=== PATIENT | female | born 1985 | race Caucasian/White ===

== ENCOUNTER 2022-03-03 22:02 | Inpatient (IN) | payer MEDICAID, SELFPAY ==
[2022-03-03 22:04] VITALS: BP 121/85; PULSE 106; RESP 16; TEMP 36.3; O2SAT 99; BMI 34.4
[2022-03-03 22:08] VITALS: BP 121/85; PULSE 106; RESP 16; TEMP 36.3; O2SAT 99
--- NOTE | 2022-03-03 22:35 | CT_ITS ---
We are attempting to reach an attending provider to discuss findings. An addendum with communication details will be sent when the communication is complete. INDICATION: RLQ pain EXAMINATION: CT Abdomen And Pelvis W/ Contrast Injection TECHNIQUE: Helically acquired images were obtained of the abdomen and pelvis following IV contrast. 2-D reconstructions reviewed. A radiation dose optimization technique was used for this scan. IV Contrast dosage and agent: 100 mL [id number] Oral contrast: None. COMPARISON: None. FINDINGS: LOWER CHEST: No acute findings within the imaged lung bases. Heart size within normal limits. LIVER: Homogeneous. No concerning lesion. GALLBLADDER AND BILIARY TREE: No calcified gallstones identified. No pericholecystic edema demonstrated. No significant biliary ductal dilation. PANCREAS: No discrete mass or peripancreatic edema. SPLEEN: Normal size without focal cystic or solid mass. ADRENAL GLANDS: Small, benign fatty 11 mm left adrenal nodule (adenoma versus myelolipoma). KIDNEYS AND URETERS: Normal renal size and position. No hydronephrosis. No concerning lesion. PERITONEUM: Small amount of free air and free fluid within right lower abdomen adjacent to inflamed air fluid collection extending from adjacent thickened loop of distal small bowel, most compatible with perforated Meckel''s diverticulum, ileal diverticulitis or other etiology bowel perforation. Air fluid collection measures approximately 2 cm diameter. There is no distant free air. BOWEL: Focal inflammation and perforation involving distal small bowel segment within right lower abdomen. Appendiceal tip intimately abuts right lower quadrant air-fluid collection but appendix does not appear dilated. No bowel obstruction. LYMPH NODES: No enlarged mesenteric or retroperitoneal lymph nodes. VESSELS: No acute findings. No abdominal aortic aneurysm. URINARY BLADDER: Unremarkable as visualized. REPRODUCTIVE ORGANS: No pelvic masses. ABDOMINAL WALL: No acute findings or significant hernia defect. BONES: Intact with no suspicious osseous lesion. CT/Abdomen/Pelvis W IV Cont ONLY IMPRESSION: Perforated distal small bowel within right lower quadrant with adjacent small abscess collection. Differential includes perforated Meckel''s diverticulitis, focal ileal diverticulitis or other etiology of bowel perforation. Adjacent distal appendix does not appear to represent source of perforation. Recommend surgical consultation. Electronically Signed: Orlando Maher MD at 0:33 EST ,
--- NOTE | 2022-03-03 22:36 | ED.VIS.GI ---
HPI HPI - GI History of Present Illness Chief Complaint: Abd Pain Informant: patient Narrative Narrative: 36-year-old female presenting with right lower quadrant pain. This started on Friday. She has had vomiting x1. She started having diarrhea today. She has had subjective fevers. On Friday morning she states she went to the bathroom stood up started to feel lightheaded and then had a syncopal episode. She did not hit her head. She had another episode of lightheadedness today that resolved with sitting down. She denies chest pain or shortness of breath. Prior similar symptoms: No Recent Illness/Hospitalization: No PFSH PFSH Home Medications benzonatate 100 mg capsule 200 mg PO TID PRN PRN Cough ##20 10/13/13 [Rx Last Taken Unknown] ibuprofen 600 mg tablet 600 mg PO Q8H PRN Pain ##30 10/13/13 [Rx Last Taken Unknown] prednisone 10 mg tablet 10 mg PO UD ##33 10/18/16 [Rx Last Taken Unknown] Allergy/AdvReac Type Severity Reaction Status Date / Time No Known Allergies Allergy Verified 10/13/13 20:57 Social History Smoking Status: Former smoker ROS ROS ED Constitutional Constitutional ED: Denies fever(s) Eyes Eyes: Denies change in vision ENT ENT ED: Denies rhinorrhea or sore throat Cardiovascular Cardiovascular: Denies chest pain or palpitations Respiratory/Chest Respiratory/Chest: Denies cough or dyspnea Gastrointestinal Gastrointestinal: Reports abdominal pain, diarrhea, nausea and vomiting Genitourinary Genitourinary ED: Denies dysuria Musculoskeletal Musculoskeletal: Denies myalgias Integumentary Denies rash Neurologic Neurologic: Reports headache(s) Psychiatric Psychiatric: Denies suicidal thoughts EXAM Physical Exam Const Vital Signs: 03/03/22 22:04 03/03/22 22:08 03/04/22 00:20 Temperature 97.3 F L 97.3 F L Temperature Source Temporal Temporal Pulse Rate 106 H 106 H Respiratory Rate 16 16 Blood Pressure 121/85 H 121/85 H Blood Pressure Mean 97 97 Pulse Ox 99 99 99 Oxygen Delivery Method Room Air Room Air Room Air Positive well nourished and well developed General Appearance ED: well developed HEENT Reports normocephalic and head/scalp atraumatic Eyes PERRL and EOMs intact bilaterally Neck supple Neck Narrative: No meningismus General: Negative for tenderness Chest Wall inspection of chest normal Resp normal respiratory effort and clear to auscultation bilaterally Cardio regular rate and regular rhythm GI non-distended GI Narrative: Right lower quadrant tenderness with no guarding or rebound Palpation: soft; Negative for guarding or rebound tenderness present no CVA tenderness Extremity normal to inspection Neuro oriented x3 Sensorium / Orientation: alert Psych mental status grossly normal MDM MDM MDM Narrative Medical decision making narrative: Patient was given IV fluids, morphine, Zofran. CBC, chemistries are unremarkable. Lipase is normal. negative. Urinalysis shows 0 white blood cells, 25-[address] abdomen pelvis was obtained and shows perforated distal small bowel within right lower quadrant with adjacent small abscess collection.? Differential includes perforated Meckel''s diverticulitis, focal ileal diverticulitis or other etiology of bowel perforation.? Adjacent distal appendix does not appear to represent source of perforation.? Recommend surgical consultation. Patient was given Zosyn IV. On repeat evaluation she continues to have right lower quadrant tenderness. Discussed with Dr. Collier. He will evaluate the patient in the ED. Lab Data Attestation: I reviewed the patient's lab results. Labs: Laboratory Results - last 24 hr 03/03/22 03/03/22 03/03/22 22:15 22:15 22:15 WBC 7.5 RBC 4.78 Hgb 13.8 Hct 41.5 MCV 86.8 MCH 28.9 MCHC 33.3 RDW Std Deviation 38.6 RDW Coeff of Dylan 12.0 Plt Count 287 MPV 10.0 Immature Gran % (Auto) 0.300 Neut % (Auto) 64.6 Lymph % (Auto) 25.8 [place] % (Auto) 8.6 Eos % (Auto) 0.4 Baso % (Auto) 0.3 Absolute Neuts (auto) 4.9 Absolute Lymphs (auto) 1.94 Nucleated RBC % 0 Sodium 138 Potassium 3.4 L Chloride 104 Carbon Dioxide 26.0 Anion Gap 8 BUN 13 Creatinine 0.88 Estim Creat Clear Calc 62.87 Est GFR (MDRD) Af Amer 93 Est GFR (MDRD) Non-Af 77 BUN/Creatinine Ratio 14.8 Glucose 116 H Calcium 8.9 Total Bilirubin 0.60 AST 12 L ALT 21 Alkaline Phosphatase 99 Total Protein 8.1 Albumin 3.6 Globulin 4.5 H Albumin/Globulin Ratio 0.8 L Lipase 78 Serum , Qual NEGATIVE Urine Color Urine Clarity Urine pH Ur Specific [place] Urine Protein Urine Glucose (UA) Urine Ketones Urine Occult Blood Urine Nitrite Urine Bilirubin Urine Urobilinogen Ur Leukocyte Esterase Urine RBC Urine WBC Ur Squamous Epith Cells Urine Bacteria Urine Mucus 03/03/22 22:50 WBC RBC Hgb Hct MCV MCH MCHC RDW Std Deviation RDW Coeff of Dylan Plt Count MPV Immature Gran % (Auto) Neut % (Auto) Lymph % (Auto) [place] % (Auto) Eos % (Auto) Baso % (Auto) Absolute Neuts (auto) Absolute Lymphs (auto) Nucleated RBC % Sodium Potassium Chloride Carbon Dioxide Anion Gap BUN Creatinine Estim Creat Clear Calc Est GFR (MDRD) Af Amer Est GFR (MDRD) Non-Af BUN/Creatinine Ratio Glucose Calcium Total Bilirubin AST ALT Alkaline Phosphatase Total Protein Albumin Globulin Albumin/Globulin Ratio Lipase Serum , Qual Urine Color Yellow Urine Clarity Sl. Cloudy Urine pH 6.0 Ur Specific [place] 1.020 Urine Protein 30 H Urine Glucose (UA) Normal Urine Ketones Negative Urine Occult Blood 25 H Urine Nitrite Negative Urine Bilirubin 1 H Urine Urobilinogen 8 H Ur Leukocyte Esterase Negative Urine RBC 0-5 SEEN Urine WBC 0 SEEN Ur Squamous Epith Cells 25-50 SEEN Urine Bacteria 0 SEEN Urine Mucus 0 SEEN Radiography Diagnostic Testing: Clinical Impression(s) from Imaging Studies Abdomen/Pelvis CT 03/03/22 22:35 IMPRESSION: Perforated distal small bowel within right lower quadrant with adjacent small abscess collection. Differential includes perforated Meckel''s diverticulitis, focal ileal diverticulitis or other etiology of bowel perforation. Adjacent distal appendix does not appear to represent source of perforation. Recommend surgical consultation. Electronically Signed: Orlando Maher MD at 0:33 EST , ADDENDUM: 03/04/22 0046 IMPRESSION: Perforated distal small bowel within right lower quadrant with adjacent small abscess collection. Differential includes perforated Meckel''s diverticulitis, focal ileal diverticulitis or other etiology of bowel perforation. Adjacent distal appendix does not appear to represent source of perforation. Recommend surgical consultation. N.B. : The above Results were Read Back by Orlando Maher MD to Kristie Hill MD, and understanding confirmed on 03/04/2022 00:39:23 (ET). Electronically Signed: Orlando Maher MD at 0:33 EST , Discharge Plan Triage Chief Complaint: Abd Pain ED Provider: Kristie Hill Dx/Rx/DC Orders Clinical Impression: Small bowel perforation Prescriptions: No Action benzonatate 100 MG capsule 200 mg PO TID PRN PRN (Reason: Cough) Qty: 20 0RF ibuprofen 600 MG tablet 600 mg PO Q8H PRN (Reason: Pain) Qty: 30 0RF prednisone 10 MG tablet 10 mg PO UD Qty: 33 0RF Rx Instructions: Take 4 tablets daily for 3 days, then 3 daily for 3 days, then 2 daily for 3 days, then 1 a day for 3 days then 1 QOD for 3 doses. Primary Care Provider: Latoya Troy Referrals: [facility] Doctor,Out of [Non-Staff] - Disposition Disposition: Acute Care Hospital [facility]
[2022-03-03 22:52] LABS: Absolute Lymphocyte Count 1.94 X10^3/uL (0.83-4.51); Absolute Neutrophil Count 4.9 X10^3/uL (2.0-7.7); Basophil# 0.02 X10^3/uL; Basophil% 0.3 % (0-1); Eosinophil# 0.03 X10^3/uL; Eosinophils% 0.4 % (0-5); Hematocrit 41.5 % (37-47); Hemoglobin 13.8 g/dL (12.0-15.0); Lymphocyte # 1.94 X10^3/ul (0.83-4.51); Lymphocyte % 25.8 % (19-41); Mean Corp Hgb Conc 33.3 g/dL (32-36); Mean Corpuscular Hgb 28.9 pg (27.0-32.0); Mean Corpuscular Volume 86.8 fL (81-99); Monocyte# 0.65 X10^3/uL; Monocyte% 8.6 % (0-10); NRBC Flagged by Analyzer 0 % (0-5); Neutrophil # 4.86 X10^3/uL (2.7-7.7); Neutrophil % 64.6 % (47-70); Platelet Count 287 K/mm3 (150-450); RBC Distribution Width SD 38.6 fl (35.1-43.9); Red Blood Count 4.78 M/mm3 (4.2-5.4); White Blood Count 7.5 K/mm3 (4.4-11.0)
[2022-03-03] MEDS: Morphine 4 MG/ML Syringe IV (22:55)
[2022-03-03] MEDS: 0.9% Normal Saline 1,000 ML 1000 ML IV (22:55)
[2022-03-03] MEDS: Ondansetron 4 MG/2 ML Vial IV (22:55)
[2022-03-03 23:04] LABS: Bacteria 0 SEEN /hpf (None Seen); Mucous, Urine 0 SEEN /hpf (<or=2+); White Blood Cells 0 SEEN /hpf (0-5)
[2022-03-03 23:05] LABS: Color, Urine Yellow (Yellow); Glucose, Dipstick Normal (Normal); Ketone-Dipstick Negative (Negative); Leukocyte Esterase-Dipstick Negative /ul (Negative); Nitrite-Dipstick Negative (Negative); Occult Blood-Urine 25 /ul (Negative); Protein-Dipstick 30 mg/dl (Negative); Urine Clarity Sl. Cloudy (Clear); Urine Urobilinogen 8 mg/dl (Normal)
[2022-03-03 23:05] LABS: Internal QC Validated? YES +Cl - CLEAR BKGD; Pregnancy, Serum, hCG Quali. NEGATIVE Negative
[2022-03-03 23:11] LABS: Urine Bilirubin Dipstick 1 mg/dL (Negative)
[2022-03-03 23:12] LABS: ALB/GLOB Ratio 0.8 RATIO (0.9-2.4); AST(SGOT) 12 U/L (15-37); Alanine Aminotransfer ALT/SGPT 21 U/L (13-56); Albumin, Serum 3.6 g/dL (3.2-5.0); Alkaline Phosphatase 99 U/L (45-117); Anion Gap 8 (5-15); BUN 13 mg/dL (7-18); BUN/Creat Ratio 14.8 RATIO (10-20); Calcium,Total 8.9 mg/dL (8.5-10.1); Chloride 104 mmol/L (98-107); Creatinine, Serum 0.88 mg/dL (0.55-1.02); EST Glomerular Filtration Rate 77 mL/min (>60); Est Glom Filt Rate - Afr Amer 93 mL/min (>60); Estimated Creatinine Clearance 62.87 ml/min; Globulin 4.5 g/dL (2.2-4.2); Glucose 116 mg/dL (74-106); Lipase 78 U/L (73-393); Potassium 3.4 mmol/L (3.5-5.1); Protein, Total 8.1 g/dL (6.4-8.2); Sodium Level 138 mmol/L (136-145)
[2022-03-03 23:13] LABS: Red Blood Cells-Urine 0-5 SEEN /hpf (0-5); Squamous Epithelial Cells - UA 25-50 SEEN /hpf (5-10)
[2022-03-04] VITALS (30 sets, daily range): BP systolic 88–114; BP diastolic 54–73; PULSE 68–109; RESP 12–32; TEMP 36.1–37.1; O2SAT 89–99; BMI 34.4; BMI 35.5
--- NOTE | 2022-03-04 | APP_PTH ---
PATIENT: SONAL TEE LOC: MS3 U#:[id number] AGE/SX: 36/F ROOM: MS309 RE03/04/[address]: Dr. Ludin Randhawa MD : 1985 BED: 1 DIS: 03/06/2022 SPEC #: [id number] RECD: 03/04/22 10:51 STATUS: MELONY GLYNN #: [id number] LYNDSEY: 03/04/22 00:[address]: Bernardo Collier DEPT: SURGICAL PATHOLOGY RECD BY: Jeremy Snowden ENTERED: 03/04/22 10:52 SP TYPE: APPENDIX OTHR DR: Dr. Latoya Troy, DO Tissues: A - Appendix, NOS B - Small intestine biopsy Procedures: Surgery Specimen Level III Surgery Specimen Level V HEADER OPERATION: Laparoscopic appendectomy, lysis of adhesions PRE-OP DIAGNOSIS: Small bowel perforation TISSUE SUBMITTED: A ? Appendix, B ? Small bowel MICROSCOPIC DIAGNOSIS A. Appendix, appendectomy: Fibrous obliteration of lumen. Periappendiceal soft tissue with abscess formation. B. Small bowel, segmental resection: Diverticular disease of colon with associated microabscess formation containing fecal debris and acute serositis. Margins of excision with no pathologic change. AM:huyen 03/06/2022 MICROSCOPIC DESCRIPTION Slides are reviewed. GROSS DESCRIPTION A - Received in fixative is one container labeled with the patient's name and designated appendix. The specimen consists of a C-shaped appendix measuring 5 cm in length and up to 0.5 cm in diameter. The attached periappendiceal adipose tissue measures up to 1.5 cm in width. It is wrapped around the appendix. No obvious perforation is identified. The lumen is pinpoint. No fecal is identified. Adjacent adipose tissue shows hemorrhagic surfaces. Technical Writer And Editor sections are submitted in three cassettes as follows: 1 - tip of the appendix and most proximal portion, 2 & 3 - rest of the appendix (cassette 3 also contains the attached periappendiceal adipose tissue). The appendix is submitted in entirety. / SJ:huyen 03/04/2022 B - Received in fixative is one container labeled with the patient's name and designated small bowel. The specimen consists of a segment of small bowel measuring 12 cm in length. Attached mesenteric tissue measures up to 3 cm in width. Both resection margins are stapled. No mucosal lesion is identified. A diverticulum is noted 1 cm away from one resection margin. A second diverticulum is also noted. No obvious gross perforation is noted. A focal area of serosal surface shows noriega, purulent exudate. A diverticulum is also noted at the site, most likely represents site of perforation. More dictation will follow after fixation. / Cory 03/04/2022 Also present in the container is a donut-shaped piece of tissue measuring 3.5 x 1.5 x 0.5 cm. Multiple panfilo are noted. Sections reveal multiple diverticula. One of the diverticula appears to be ruptured. The serosal surface over the diverticula shows noriega, purulent exudate. Sections of mesenteric tissue do not reveal any obviously enlarged lymph node. Technical Writer And Editor sections are submitted in six cassettes as follows: 1 - donut, 2 - resection margin, 3-5 - ruptured diverticulum, 6 - additional diverticula and mesenteric tissue. Cristina Ray 03/05/2022 TC:2 CPT: 15145, 80503
--- NOTE | 2022-03-04 | APP_PTH ---
PATIENT: SONAL TEE LOC: MS3 U#:[id number] AGE/SX: 36/F ROOM: MS309 RE03/04/[address]: Dr. Ludin Randhawa MD : 1985 BED: 1 DIS: 03/06/2022 SPEC #: [id number] RECD: 03/04/22 10:51 STATUS: MELONY GLYNN #: [id number] LYNDSEY: 03/04/22 00:[address]: Bernardo Collier DEPT: SURGICAL PATHOLOGY RECD BY: Jeremy Snowden ENTERED: 03/04/22 10:52 SP TYPE: APPENDIX OTHR DR: Dr. Latoya Troy, DO Tissues: A - Appendix, NOS B - Small intestine biopsy Procedures: Surgery Specimen Level III Surgery Specimen Level V HEADER OPERATION: Laparoscopic appendectomy, lysis of adhesions PRE-OP DIAGNOSIS: Small bowel perforation TISSUE SUBMITTED: A - Appendix, B - Small bowel MICROSCOPIC DIAGNOSIS A. Appendix, appendectomy: Fibrous obliteration of lumen. Periappendiceal soft tissue with abscess formation. B. Small bowel, segmental resection: Diverticular disease of small bowel with associated microabscess formation containing fecal debris and acute serositis. Margins of excision with no pathologic change. AM:huyen 03/06/2022 MICROSCOPIC DESCRIPTION Slides are reviewed. GROSS DESCRIPTION A - Received in fixative is one container labeled with the patient's name and designated appendix. The specimen consists of a C-shaped appendix measuring 5 cm in length and up to 0.5 cm in diameter. The attached periappendiceal adipose tissue measures up to 1.5 cm in width. It is wrapped around the appendix. No obvious perforation is identified. The lumen is pinpoint. No fecal is identified. Adjacent adipose tissue shows hemorrhagic surfaces. Branch Billing Payroll Clerk sections are submitted in three cassettes as follows: 1 - tip of the appendix and most proximal portion, 2 & 3 - rest of the appendix (cassette 3 also contains the attached periappendiceal adipose tissue). The appendix is submitted in entirety. / SJ:huyen 03/04/2022 B - Received in fixative is one container labeled with the patient's name and designated small bowel. The specimen consists of a segment of small bowel measuring 12 cm in length. Attached mesenteric tissue measures up to 3 cm in width. Both resection margins are stapled. No mucosal lesion is identified. A diverticulum is noted 1 cm away from one resection margin. A second diverticulum is also noted. No obvious gross perforation is noted. A focal area of serosal surface shows noriega, purulent exudate. A diverticulum is also noted at the site, most likely represents site of perforation. More dictation will follow after fixation. / Cory 03/04/2022 Also present in the container is a donut-shaped piece of tissue measuring 3.5 x 1.5 x 0.5 cm. Multiple panfilo are noted. Sections reveal multiple diverticula. One of the diverticula appears to be ruptured. The serosal surface over the diverticula shows noriega, purulent exudate. Sections of mesenteric tissue do not reveal any obviously enlarged lymph node. Branch Billing Payroll Clerk sections are submitted in six cassettes as follows: 1 - donut, 2 - resection margin, 3-5 - ruptured diverticulum, 6 - additional diverticula and mesenteric tissue. Cristina Ray 03/05/2022 TC:2 CPT: 55318, 95603
--- NOTE | 2022-03-04 01:35 | CON.PCM.SX_ITS ---
Assessment & Plan Assessment/Plan (1) Small bowel perforation: PLAN: My plan is perform a laparoscopic exploration. Possible resection of small bowel probable laparoscopic appendectomy. I have counseled the patient as to the risks of the procedure, including but not limited to: infection, bleeding, injury to any blood vessels/nerves, injury to any bowel/bladder, injury to any intraabdominal organs such as the liver/spleen, perforation of the GI tract, intraabdominal abscess/bleeding, incisional hernias, , recurrence of hernia(s), complications of anesthesia, etc. The patient verbalizes understanding. HPI Consult Data Date of Consult: 03/04/22 HPI Narrative HPI Narrative: SONAL MEJÍA, is a 36 F who presents ?with right lower quadrant pain.? This started on Friday.? She has had vomiting x1.? She started having diarrhea today.? She has had subjective fevers.? On Friday morning she states she went to the bathroom stood up started to feel lightheaded and then had a syncopal episode.? She did not hit her head.? She had another episode of lightheadedness today that resolved with sitting down.? She denies chest pain or shortness of breath. Prior similar symptoms: No Recent Illness/Hospitalization: No While in the emergency department the Patient was given IV fluids, morphine, Zofran.? CBC, chemistries are unremarkable.? Lipase is normal.? negative.? Urinalysis shows 0 white blood cells, 25-[address] abdomen pelvis was obtained and shows perforated distal small bowel within right lower quadrant with adjacent small abscess collection.? Differential includes perforated Meckel''s diverticulitis, focal ileal diverticulitis or other etiolo gy of bowel perforation.? Adjacent distal appendix does not appear to represent source of perforation.? ? Patient was given Zosyn IV.? On repeat evaluation she continues to have right lower quadrant tenderness.? PFSH Home Medications benzonatate 100 mg capsule 200 mg PO TID PRN PRN Cough ##20 10/13/13 [Rx Last Taken Unknown] ibuprofen 600 mg tablet 600 mg PO Q8H PRN Pain ##30 10/13/13 [Rx Last Taken Unknown] prednisone 10 mg tablet 10 mg PO UD ##33 10/18/16 [Rx Last Taken Unknown] Allergy/AdvReac Type Severity Reaction Status Date / Time No Known Allergies Allergy Verified 10/13/13 20:57 Social History Smoking Status: Former smoker ROS Constitutional Constitutional: Denies chills or fever(s) Eyes Eyes: Denies change in vision Cardiovascular Cardiovascular: Denies chest pain Respiratory/Chest Respiratory/Chest: Denies cough or dyspnea Gastrointestinal Gastrointestinal: Reports abdominal pain, constipation, diarrhea and vomiting Genitourinary Genitourinary: Denies change in urinary stream Physical Exam Const alert, oriented x3 and no apparent distress HEENT normocephalic and head/scalp atraumatic Eyes PERRL and EOMs intact bilaterally Resp clear to auscultation bilaterally Cardio Rate: regular rate Rhythm: regular rhythm GI soft to palpation Palpation: tender RLQ Extremity normal to inspection Lab / Micro Data Result Diagrams: 03/03/22 22:15 03/03/22 22:15 Labs: Laboratory Results - last 24 hr 03/03/22 22:15: WBC 7.5, RBC 4.78, Hgb 13.8, Hct 41.5, MCV 86.8, MCH 28.9, MCHC 33.3, RDW Std Deviation 38.6, RDW Coeff of Dylan 12.0, Plt Count 287, MPV 10.0, Immature Gran % (Auto) 0.300, Neut % (Auto) 64.6, Lymph % (Auto) 25.8, [place] % (Auto) 8.6, Eos % (Auto) 0.4, Baso % (Auto) 0.3, Absolute Neuts (auto) 4.9, Absolute Lymphs (auto) 1.94, Nucleated RBC % 0 03/03/22 22:15: Sodium 138, Potassium 3.4 L, Chloride 104, Carbon Dioxide 26.0, Anion Gap 8, BUN 13, Creatinine 0.88, Estim Creat Clear Calc 62.87, Est GFR (MDRD) Af Amer 93, Est GFR (MDRD) Non-Af 77, BUN/Creatinine Ratio 14.8, Glucose 116 H, Calcium 8.9, Total Bilirubin 0.60, AST 12 L, ALT 21, Alkaline Phosphatase 99, Total Protein 8.1, Albumin 3.6, Globulin 4.5 H, Albumin/Globulin Ratio 0.8 L , Lipase 78 03/03/22 22:15: Serum , Qual NEGATIVE 03/03/22 22:50: Urine Color Yellow, Urine Clarity Sl. Cloudy, Urine pH 6.0, Ur Specific [place] 1.020, Urine Protein 30 H, Urine Glucose (UA) Normal, Urine Ketones Negative, Urine Occult Blood 25 H, Urine Nitrite Negative, Urine Bilirubin 1 H, Urine Urobilinogen 8 H, Ur Leukocyte Esterase Negative, Urine RBC 0-5 SEEN, Urine WBC 0 SEEN, Ur Squamous Epith Cells 25-50 SEEN, Urine Bacteria 0 SEEN, Urine Mucus 0 SEEN Micro: Microbiology 03/03/22 22:48 Nasal Secretion SARS-CoV-2 & FLU Antigen (Rapid) - Final Radiology Impression Abdomen/Pelvis CT 03/03/22 22:35 IMPRESSION: Perforated distal small bowel within right lower quadrant with adjacent small abscess collection. Differential includes perforated Meckel''s diverticulitis, focal ileal diverticulitis or other etiology of bowel perforation. Adjacent distal appendix does not appear to represent source of perforation. Recommend surgical consultation. Electronically Signed: Orlando Maher MD at 0:33 EST , ADDENDUM: 03/04/22 0046 IMPRESSION: Perforated distal small bowel within right lower quadrant with adjacent small abscess collection. Differential includes perforated Meckel''s diverticulitis, focal ileal diverticulitis or other etiology of bowel perforation. Adjacent distal appendix does not appear to represent source of perforation. Recommend surgical consultation. N.B. : The above Results were Read Back by Orlando Maher MD to Kristie Hill MD, and understanding confirmed on 03/04/2022 00:39:23 (ET). Electronically Signed: Orlando Maher MD at 0:33 EST ,
[2022-03-04] MEDS: Lactated Ringers 1,000 ML 15 ML IV ×2 (02:30→06:16)
[2022-03-04] MEDS: Bupivacaine Mpf 0.5% 30 ML VIAL (04:49)
--- NOTE | 2022-03-04 05:03 | SUR.PHASEI ---
PATIENT CAME TO PACU WITH A SPO2 IN THE 70'S. MULTIPLE ATTEMPTS TO AROUSE PATIENT WITH STERNAL RUBS TO HAVE PATIENT TAKE DEEP BREATHS. SHE EVENTUALLY WOULD OPEN HER EYES BUT GO BACK TO SLEEP. NON REBREATHER MASK APPLIED AT 15L AND PATIENT STILL IN THE HIGH 70'S. DR. CRAWLEY AT THE BEDSIDE DOING JAW THRUSTS AND WORKING TO WAKE PATIENT UP. DR. CRAWLEY ATTEMPTED A NASAL AIRWAY BUT WAS UNABLE TO PASS THROUGH PATIENT'S NASAL PASSAGES AND PATIENT WAS FIGHTING THIS. PATIENT WAS ABLE TO COUGH A COUPLE TIMES, BUT STILL NOT GETTING OUT OF THE 80'S. RESPIRATORY CALLED TO COME AND DO A TREATMENT. THEY WERE DELAYED SO DR. CRAWLEY SAID OK FOR US TO DO. ALBUTERAL TREATMENT STARTED. PATIENT EVENTUALLY POPPED UP INTO THE LOW 90'S AFTER TREATMENT. RESPIRATORY CAME AND CHECKED PATIENT. SHE LISTENED TO HER LUNGS AND SAID SHE IS CLEAR, EXCEPT FOR SNORING SOUNDS IN HER THROAT. PATIENT IS CURRENTLY AT 545 AM ON A NRB MASK AT 10 LITERS. WILL CONTINUE TO MONITOR TO LOWER HER OXYGEN NEEDS SHE WAKES UP.
--- NOTE | 2022-03-04 05:09 | PCM.OPRPT ---
Problems Associated Problem List Diagnoses (1) Small bowel perforation: Report of Operation Date of Procedure: 03/04/22 Pre-Operative Diagnosis: Small bowel perforation Post-Operative Diagnosis: Same Surgery/Procedure Performed:: Laparoscopic appendectomy, laparoscopic lysis of adhesions, small bowel resection. Surgeon: Bernardo Collier salesperson household appliances: Carmel Johnson Type of Anesthesia: General Anesthesiologist: Adela Constantino Specimen's removed: 1. Appendix, #2 small bowel Estimated Blood Loss (mL): < 25 cc Fluids Replaced: 1500 cc lr Description of Procedure: Patient was brought in the operating room. Placed in the supine position. Under excellent general anesthetic Dasilva catheter was placed the abdomen was sterilely prepped and draped in usual fashion. Local was injected supraumbilically. Dissection was carried down to the fascia the fascia grasped with a [place] varies needle was placed inside the abdomen the abdomen was insufflated to 15 torr. A 10/12 trocar was placed without difficulty. Patient was placed in the headdown position. Suprapubic #5 trocar was placed to the left lower quadrant #5 trocar was placed. Patient was noted to have dense masslike area in the right lower quadrant. I followed the appendix going down into this area which was surrounded by jejunum I dissected the appendix off of the cecum and the mesoappendix with an Enseal. I transected the base of the appendix with a 45 linear cutter and brought it into a specimen bag and took it out. I inspected the appendix. It appeared to be within its entirety without perforation. And it really did not feel firm as if it was abnormal. I then mobilized the jejunum lysed significant adhesions all around this. To the area where the appendix went down to this clearly looked and felt abnormal using the laparoscopic instruments knowing with a CAT scan showing free air I thought it best that this area of the small intestine be resected. I opened up her previous midline incision. Placed a wound protector brought up this abnormal area. Transected the small intestine with a 75 linear cutters and then came through the mesentery with the ligature. I had excellent hemostasis. I sent this piece of bowel out for permanent sectioning. I brought the 2 ends of the small intestine together made 2 enterotomies placed a 75 linear cutter connected the 2 and then closed the large enterotomy with the 60 stapler. In the crotch stitch I put a 3-0 GI silk I closed the mesenteric rent with interrupted 2-0 Vicryl's. I reinflated the abdomen I still had good pneumostasis I looked into the pelvis there was no pus and nor had I identified any pus at all throughout the surgery. All of my staple lines look clean without signs of leaking. I removed the trochars under direct visualization. I closed the fascia with a #1 PDS skin was brought together with deep dermal stitches of 3-0 Vicryl then running 4-0 Monocryl the 2 others trochars were closed with interrupted 4-0 Monocryl. Steri-Strips were applied sterile dressings were applied and the patient tolerated the procedure well. Admit VTE Documentation VTE Present on Admission: No VTE Mechan Device Prophylaxis: SCD's VTE Pharm Prophylaxis ordered?: No Reason prophylaxis not ordered:: Treatment Not Indicated
[2022-03-04] MEDS: Albuterol 2.5 MG/3 ML VIAL.NEB. INHALATION ×3 (05:26→19:31)
--- NOTE | 2022-03-04 05:45 | CPS ---
Pt is post op.. slow to wake up from anesthesia. Pt has snoring respirations. FANI witnessed and undiagnosed
[2022-03-04 06:08] LABS: Absolute Lymphocyte Count 1.14 X10^3/uL (0.83-4.51); Absolute Neutrophil Count 10.6 X10^3/uL (2.0-7.7); Basophil# 0.01 X10^3/uL; Basophil% 0.1 % (0-1); Eosinophil# 0.01 X10^3/uL; Eosinophils% 0.1 % (0-5); Hematocrit 35.8 % (37-47); Hemoglobin 11.4 g/dL (12.0-15.0); Lymphocyte # 1.14 X10^3/ul (0.83-4.51); Lymphocyte % 9.4 % (19-41); Mean Corp Hgb Conc 31.8 g/dL (32-36); Mean Corpuscular Hgb 28.6 pg (27.0-32.0); Mean Corpuscular Volume 89.7 fL (81-99); Mean Platelet Vol. 9.8 fl (6.2-12.0); Monocyte# 0.22 X10^3/uL; Monocyte% 1.8 % (0-10); NRBC Flagged by Analyzer 0 % (0-5); Neutrophil # 10.61 X10^3/uL (2.7-7.7); Neutrophil % 87.9 % (47-70); Platelet Count 241 K/mm3 (150-450); RBC Distribution Width CV 12.1 % (11.6-14.6); RBC Distribution Width SD 39.8 fl (35.1-43.9); Red Blood Count 3.99 M/mm3 (4.2-5.4); White Blood Count 12.1 K/mm3 (4.4-11.0)
[2022-03-04 06:27] LABS: Anion Gap 6 (5-15); BUN 10 mg/dL (7-18); BUN/Creat Ratio 12.1 RATIO (10-20); Calcium,Total 7.6 mg/dL (8.5-10.1); Chloride 109 mmol/L (98-107); Creatinine, Serum 0.82 mg/dL (0.55-1.02); EST Glomerular Filtration Rate 82 mL/min (>60); Est Glom Filt Rate - Afr Amer 100 mL/min (>60); Estimated Creatinine Clearance 67.47 ml/min; Glucose 137 mg/dL (74-106); Potassium 3.7 mmol/L (3.5-5.1); Sodium Level 140 mmol/L (136-145)
[2022-03-04] MEDS: 0.9% Normal Saline 1,000 ML 75 ML IV ×2 (07:00→15:00)
[2022-03-04] MEDS: 0.9% Saline Lock 10 ML Syringe IV ×2 (09:42→15:00)
--- NOTE | 2022-03-04 10:06 | NURSING ---
03/04/22@ 1000- Report called to JENNIFER Cantrell on MedSurg 3. Patient will be going to room 309.
[2022-03-04] MEDS: oxyCODONE 5 MG Tablet PO ×3 (10:53→23:53)
[2022-03-04] MEDS: HYDROmorphone 0.5 MG/0.5 ML SYRINGE IV ×2 (14:59→20:55)
--- NOTE | 2022-03-04 15:31 | CHAPLAIN ---
Type of Pastoral Visit _x__ Initial Visit ___ Follow-up Visit ___ On-call Visit ___ General Patient Visit ___ Spiritual Assessment ___ Family Conference ___ Bereavement ___ Rapid Response ___ Code Blue ___ Other (describe below) Pastoral Care Referral From _x__ Patient ___ Family ___ Nurse ___ Physician ___ Professional Programmer Analyst ___ Lpn Rn ___ Other (describe below) Sacrament/Intervention ___ Active listening ___ Anointing ___ Pentecostalism ___ Bereavement ___ Communion ___ Sahra exploration ___ ___ Life review ___ Prayer ___ Reconciliation ___ Sacrament of Sick _x__ Supportive presence ___ Wedding ___ Other (describe below) Pastoral Comments patient is resting quietly in room; pt states that she is fine, waiting for her to come back later today, and that she has no other needs now; pt goal is to get more rest now
[2022-03-04] MEDS: Acetaminophen 325 MG Tablet 650 MG PO (23:54)
[2022-03-05] VITALS (12 sets, daily range): BP systolic 91–117; BP diastolic 59–74; PULSE 73–99; RESP 16–22; TEMP 36.6–36.8; O2SAT 92–94
[2022-03-05] MEDS: 0.9% Normal Saline 1,000 ML 75 ML IV ×2 (03:41→17:09)
[2022-03-05 06:30] LABS: Absolute Lymphocyte Count 1.18 X10^3/uL (0.83-4.51); Absolute Neutrophil Count 9.8 X10^3/uL (2.0-7.7); Basophil# 0.02 X10^3/uL; Basophil% 0.2 % (0-1); Hematocrit 33.2 % (37-47); Hemoglobin 10.6 g/dL (12.0-15.0); Lymphocyte # 1.18 X10^3/ul (0.83-4.51); Lymphocyte % 10.1 % (19-41); Mean Corp Hgb Conc 31.9 g/dL (32-36); Mean Corpuscular Volume 90.7 fL (81-99); Mean Platelet Vol. 10.3 fl (6.2-12.0); Monocyte# 0.65 X10^3/uL; Monocyte% 5.6 % (0-10); NRBC Flagged by Analyzer 0 % (0-5); Neutrophil % 83.7 % (47-70); Platelet Count 254 K/mm3 (150-450); RBC Distribution Width CV 12.3 % (11.6-14.6); Red Blood Count 3.66 M/mm3 (4.2-5.4); White Blood Count 11.7 K/mm3 (4.4-11.0)
[2022-03-05] MEDS: Acetaminophen 325 MG Tablet 650 MG PO ×2 (06:44→19:21)
[2022-03-05 06:58] LABS: Anion Gap 5 (5-15); BUN 8 mg/dL (7-18); BUN/Creat Ratio 10.2 RATIO (10-20); Chloride 109 mmol/L (98-107); Creatinine, Serum 0.79 mg/dL (0.55-1.02); EST Glomerular Filtration Rate 87 mL/min (>60); Est Glom Filt Rate - Afr Amer 105 mL/min (>60); Estimated Creatinine Clearance 70.03 ml/min; Glucose 115 mg/dL (74-106); Potassium 3.9 mmol/L (3.5-5.1); Sodium Level 139 mmol/L (136-145)
[2022-03-05] MEDS: Albuterol 2.5 MG/3 ML VIAL.NEB. INHALATION ×3 (07:45→20:31)
--- NOTE | 2022-03-05 10:04 | CASEMGMT ---
JENNIFER MADDEN Assessment: Face to Face with pt for initial transition planning/care coordination assessment. RN CHANO introduced self and role at [facility], pt voices understanding and consents to assessment. Pt is A/O x4 and answers all questions appropriately at this time. Pt sitting up in bed in no distress. Care providers, pharmacy, and demographics verified/updated. Admitting Dx: bowel perf PCP:Sydni Specialists:Pt denies Preferred [facility]acy:[facility] Insurance: [employer]h Prescription Benefit: yes LNOK: Prosper Hooper, Living Arrangements: Pt lives with and dtr in a mobile home with a ramp to enter. Pt reports she is I in ADL's and denies concerns at home. Transportation: Pt drives self and denies concerns with transportation. DME/HHC/SNF: Pt denies having any DME in the home, previous HHC or SNF stays. Pt states no concerns with going home at time of dc. Pt states no further concerns/needs. CM to follow. Advised pt to ask CM if any further question/concerns/needs arise, voices understanding. Pt Goal: Home Plan: Home
[2022-03-05] MEDS: Ensure Clear 120 ML Liquid PO ×2 (10:16→13:34)
--- NOTE | 2022-03-05 11:43 | PCM.PN.SRG ---
Subjective Subjective Patient starting to feel better since she has passed gas. No bowel movements as of yet. Objective Data Objective Data Dressing is dry abdomen is obese but soft no rebound guarding or peritoneal signs are identified Vital Signs: Vital Signs Temp Pulse Resp BP Pulse Ox O2 Del Method O2 Flow Rate 98.2 F 89 18 103/59 L 92 Room Air 2 03/05/22 08:55 03/05/22 08:55 03/05/22 08:55 03/05/22 08:55 03/05/22 09:24 03/05/22 09:24 03/04/22 23:39 Oxygen Flow Rate (L/min) 2 Oxygen Delivery Method Room Air Weight: 182 lb 1.629 oz Body Mass Index (BMI) 35.5 Intake & Output: Intake and Output for Last 24 Hours 03/03/22 03/04/22 03/05/22 23:59 23:59 23:59 Intake Total 4988.75 / 4988.75 2361.25 / 2361.25 Output Total 2130 / 2130 250 / 250 Balance 2858.75 / 2858.75 2111.25 / 2111.25 Lab / Micro Data Result Diagrams: 03/05/22 05:19 03/05/22 05:19 Labs: Laboratory Results - last 24 hr 03/05/22 05:19: WBC 11.7 H, RBC 3.66 L, Hgb 10.6 L, Hct 33.2 L, MCV 90.7, MCH 29.0, MCHC 31.9 L, RDW Std Deviation 41.0, RDW Coeff of Dylan 12.3, Plt Count 254, MPV 10.3, Immature Gran % (Auto) 0.400, Neut % (Auto) 83.7 H, Lymph % (Auto) 10.1 L, [place] % (Auto) 5.6, Eos % (Auto) 0.0, Baso % (Auto) 0.2, Absolute Neuts (auto) 9.8 H, Absolute Lymphs (auto) 1.18, Nucleated RBC % 0 03/05/22 05:19: Sodium 139, Potassium 3.9, Chloride 109 H, Carbon Dioxide 25.0, Anion Gap 5, BUN 8, Creatinine 0.79, Estim Creat Clear Calc 70.03, Est GFR (MDRD) Af Amer 105, Est GFR (MDRD) Non-Af 87, BUN/Creatinine Ratio 10.2, Glucose 115 H, Calcium 8.0 L Micro: Microbiology 03/03/22 22:48 Nasal Secretion SARS-CoV-2 & FLU Antigen (Rapid) - Final Assessment & Plan Assessment/Plan (1) Small bowel perforation: PLAN: I think it is okay to advance her diet to full liquids. Probably not ready for discharge as of yet.
[2022-03-06] VITALS (7 sets, daily range): BP systolic 112–118; BP diastolic 71–86; PULSE 81–87; RESP 16–20; TEMP 36.3–36.9; O2SAT 94–95
[2022-03-06] MEDS: 0.9% Normal Saline 1,000 ML 75 ML IV (05:20)
[2022-03-06 05:47] LABS: Absolute Lymphocyte Count 2.23 X10^3/uL (0.83-4.51); Absolute Neutrophil Count 4.1 X10^3/uL (2.0-7.7); Basophil# 0.02 X10^3/uL; Basophil% 0.3 % (0-1); Eosinophil# 0.02 X10^3/uL; Eosinophils% 0.3 % (0-5); Hematocrit 29.7 % (37-47); Hemoglobin 9.7 g/dL (12.0-15.0); Lymphocyte # 2.23 X10^3/ul (0.83-4.51); Lymphocyte % 32.8 % (19-41); Mean Corp Hgb Conc 32.7 g/dL (32-36); Mean Corpuscular Hgb 29.4 pg (27.0-32.0); Monocyte# 0.38 X10^3/uL; Monocyte% 5.6 % (0-10); NRBC Flagged by Analyzer 0 % (0-5); Neutrophil # 4.13 X10^3/uL (2.7-7.7); Neutrophil % 60.7 % (47-70); Platelet Count 235 K/mm3 (150-450); RBC Distribution Width CV 12.7 % (11.6-14.6); RBC Distribution Width SD 42.5 fl (35.1-43.9); White Blood Count 6.8 K/mm3 (4.4-11.0)
--- NOTE | 2022-03-06 06:03 | PCM.PN.SRG ---
Subjective Subjective She states that she continues to pass flatus. She denies any abdominal pain except when coughing or walking. She has no nausea. She claims to be tolerating liquids Objective Data Objective Data Vital Signs: Vital Signs Temp Pulse Resp BP Pulse Ox O2 Del Method O2 Flow Rate 98.4 F 82 16 116/86 H 94 Room Air 2 03/06/22 02:49 03/06/22 02:49 03/06/22 02:49 03/06/22 02:49 03/06/22 02:49 03/06/22 02:49 03/04/22 23:39 Oxygen Flow Rate (L/min) 2 Oxygen Delivery Method Room Air Weight: 182 lb 1.629 oz Body Mass Index (BMI) 35.5 Intake & Output: Intake and Output for Last 24 Hours 03/04/22 03/05/22 03/06/22 23:59 23:59 23:59 Intake Total 4988.75 / 4988.75 3811.25 / 3811.25 1113.75 / 1113.75 Output Total 2130 / 2130 800 / 800 600 / 600 Balance 2858.75 / 2858.75 3011.25 / 3011.25 513.75 / 513.75 Lab / Micro Data Result Diagrams: 03/05/22 05:19 03/05/22 05:19 Labs: Laboratory Results - last 24 hr 03/05/22 05:19: WBC 11.7 H, RBC 3.66 L, Hgb 10.6 L, Hct 33.2 L, MCV 90.7, MCH 29.0, MCHC 31.9 L, RDW Std Deviation 41.0, RDW Coeff of Dylan 12.3, Plt Count 254, MPV 10.3, Immature Gran % (Auto) 0.400, Neut % (Auto) 83.7 H, Lymph % (Auto) 10.1 L, [place] % (Auto) 5.6, Eos % (Auto) 0.0, Baso % (Auto) 0.2, Absolute Neuts (auto) 9.8 H, Absolute Lymphs (auto) 1.18, Nucleated RBC % 0 03/05/22 05:19: Sodium 139, Potassium 3.9, Chloride 109 H, Carbon Dioxide 25.0, Anion Gap 5, BUN 8, Creatinine 0.79, Estim Creat Clear Calc 70.03, Est GFR (MDRD) Af Amer 105, Est GFR (MDRD) Non-Af 87, BUN/Creatinine Ratio 10.2, Glucose 115 H, Calcium 8.0 L Micro: Microbiology 03/03/22 22:48 Nasal Secretion SARS-CoV-2 & FLU Antigen (Rapid) - Final Physical Exam GI GI Narrative: Abdomen is slightly more distended than yesterday, bowel sounds are present but infrequent, abdominal incision appears clean and dry, no focal tenderness Assessment & Plan Assessment/Plan (1) Small bowel perforation: PLAN: Patient is making progress. She appears slightly more distended than yesterday. She is not uncomfortable and was not having any nausea. She is only taking Tylenol for discomfort. She is still on Zosyn antibiotic. My understanding was that there was no free purulence at the time of her procedure. She is postoperative day 2 We will continue to evaluate. If she continues to pass flatus and tolerate liquids would consider discharge later today. Consider oral Augmentin twice daily for 3 days. Ludin Randhawa M.D., F.A.C.S.
[2022-03-06 06:21] LABS: Anion Gap 4 (5-15); BUN 8 mg/dL (7-18); BUN/Creat Ratio 9.8 RATIO (10-20); Calcium,Total 7.8 mg/dL (8.5-10.1); Chloride 114 mmol/L (98-107); Creatinine, Serum 0.81 mg/dL (0.55-1.02); EST Glomerular Filtration Rate 84 mL/min (>60); Est Glom Filt Rate - Afr Amer 101 mL/min (>60); Glucose 91 mg/dL (74-106); Potassium 3.6 mmol/L (3.5-5.1); Sodium Level 143 mmol/L (136-145)
[2022-03-06] MEDS: Acetaminophen 325 MG Tablet 650 MG PO (09:08)
--- NOTE | 2022-03-06 10:29 | DS.PCM_ITS ---
Providers Date of Admission: 03/04/22 Primary Care Physician: Dr. Latoya Troy DO Reason For Visit: PERFORATED SMALL INTESTINE Diagnosis Discharge Diagnosis (1) Small bowel perforation: Status: Acute Code(s): K63.1 - Perforation of intestine (nontraumatic) Medications at Discharge Home Medications amoxicillin 875 mg-potassium clavulanate 125 mg tablet 1 tab PO BID 3 days #6 tabs 03/06/22 Hospital Course Operations - (Laparoscopic appendectomy, laparoscopic lysis of adhesions, small bowel resection) Summary of Care Provided Minutes Spent on Discharge: 25 Hospital Course: Patient presented with right lower quadrant pain. CT scan of the abdomen/pelvis demonstrated small amount of free air within the right lower abdomen with associated inflammation consistent with a perforated Meckel's diverticulum. Dr. Collier performed a Laparoscopic appendectomy, laparoscopic lysis of adhesions, small bowel resection on 03/04/22. Patient tolerated the procedure well. WBC returned to normal. Upon discharge, patient notes minimal amount of soreness/discomfort with coughing and positional movement. Patient denies nausea, vomiting, fever. She notes she is passing flatus. Physical Exam GI GI Narrative: Abdomen- incision c/d/i. Soft. Positive bowel sounds noted. No incisional drainage noted. Weight / BMI Weight Weight: 182 lb 1.629 oz Body Mass Index (BMI) 35.5 ABG / Lab / Microbiology Data Result Diagrams: 03/06/22 04:36 03/06/22 04:36 Laboratory: Laboratory Results - last 24 hr 03/06/22 04:36: WBC 6.8, RBC 3.30 L, Hgb 9.7 L, Hct 29.7 L, MCV 90.0, MCH 29.4, MCHC 32.7, RDW Std Deviation 42.5, RDW Coeff of Dylan 12.7, Plt Count 235, MPV 10.0, Immature Gran % (Auto) 0.300, Neut % (Auto) 60.7, Lymph % (Auto) 32.8, [place] % (Auto) 5.6, Eos % (Auto) 0.3, Baso % (Auto) 0.3, Absolute Neuts (auto) 4.1, Absolute Lymphs (auto) 2.23, Nucleated RBC % 0 03/06/22 04:36: Sodium 143, Potassium 3.6, Chloride 114 H, Carbon Dioxide 25.0, Anion Gap 4 L, BUN 8, Creatinine 0.81, Estim Creat Clear Calc 68.30, Est GFR (MDRD) Af Amer 101, Est GFR (MDRD) Non-Af 84, BUN/Creatinine Ratio 9.8 L, Glucose 91, Calcium 7.8 L Microbiology: Microbiology 03/03/22 22:48 Nasal Secretion SARS-CoV-2 & FLU Antigen (Rapid) - Final Meaningful Use Info Meaningful Use Diagnoses (Choose all that apply): None applicable Discharge Plan Admission Admit Date/Time: 03/04/22 05:15 Primary Reason for Your Visit: Small bowel perforation Attending Provider: Ludin Randhawa Primary Care Provider: Latoya Troy Instructions Additional Instructions / Restrictions: Recommend no lifting greater than 10 pounds for 7-10 days or until your post-op appointment. You may take Miralax or Colace to assist with bowel movements You may also use a heating pad to assist with abdominal discomfort You may take Tylenol every 6 hours as needed for pain You will need to contact Dr. Collier's office for a follow-up in 7-10 days Discharge Orders/Prescriptions Prescriptions: New amoxicillin-pot clavulanate 875-125 mg tablet 1 tab PO BID 3 Days Qty: 6 0RF Referrals / Follow Up: Bernardo Collier MD [Med Staff - Active Staff] - (Please call the office for a follow-up appointment for 7-10 days) Latoya Troy, [Primary Care Provider] - [facility] Doctor,Out of [Non-Staff] - Disposition Disposition (needs filled in before D/C Order can be placed): Home, Self Care
[2022-03-06] MEDS: Albuterol 2.5 MG/3 ML VIAL.NEB. INHALATION (10:32)
--- NOTE | 2022-03-06 10:39 | DCINST_ITS ---
Discharge Instructions Diet Discharge Diet: Light diet - advance as tolerated Activity Discharge Activity: May Not Drive (3-5 days) Lifting Restrictions: No lifting greater than 10 pounds for 10 days Dressing / Incision Call your doctor if your incision/area has: Sudden Increased Bleeding, Increased Pain/ Swelling, Increased Redness, Foul Smelling Discharge and Swelling at the incision site Call your doctor if you observe: Fever of 101 or Higher Suture Line Care: Avoid Pulling/Pushing and Avoid Pinching/Bending Cleanse incision/area with: Soap & Water Additional Dressing/Incision Instructions:: Remove op-site dressings on Friday, 03/08. Change gauze dressing daily to the midline incision Follow Up Care Please Follow Up With: Bernardo Collier MD When: 7-10 days from discharge. Please call [phone] Test Results: Test results from this visit will be discussed in further detail at your follow- up appointment, if applicable. Discharge Plan Admission Admit Date/Time: 03/04/22 05:15 Primary Reason for Your Visit: Small bowel perforation Attending Provider: Ludin Randhawa Primary Care Provider: Latoya Troy Instructions Additional Instructions / Restrictions: Recommend no lifting greater than 10 pounds for 7-10 days or until your post-op appointment. You may take Miralax or Colace to assist with bowel movements You may also use a heating pad to assist with abdominal discomfort You may take Tylenol every 6 hours as needed for pain You will need to contact Dr. Collier's office for a follow-up in 7-10 days Discharge Orders/Prescriptions Prescriptions: New amoxicillin-pot clavulanate 875-125 mg tablet 1 tab PO BID 3 Days Qty: 6 0RF Referrals / Follow Up: Bernardo Collier MD [Med Staff - Active Staff] - (Please call the office for a follow-up appointment for 7-10 days) Latoay Troy, [Primary Care Provider] - [facility] Doctor,Out of [Non-Staff] - Disposition Disposition (needs filled in before D/C Order can be placed): Home, Self Care
--- NOTE | 2022-03-06 14:49 | NURSING ---
Karen Leo Phyisican Pelt Shearer updated on pt. See focussed assessment. Pt to be discharged.
== END 2022-03-06 16:30 | disposition home or self-care (01) | DRG 230 ==
LOC: ED 03-04 01:26 → ICU 03-04 06:31 → MS3 03-05 08:19 → ICU 03-05 09:36 → MS3 03-05 09:36
PROVIDERS: Surgery; Admitting Provider Surgery; Emergency Provider Emergency Medicine; Visit Provider Surgery
PROC: 0DTJ4ZZ Resection of Appendix, Percutaneous Endoscopic Approach (ICD-10-PCS; CPT 44970; principal; 2022-03-04 02:30)
DX: K63.1 Perforation of intestine (nontraumatic) (principal); Q43.0 Meckel's diverticulum (displaced) (hypertrophic); Z87.891 Personal history of nicotine dependence
CPT/HCPCS: 36415; 74177; 80048; 80053; 81001; 83690; 84703; 85025; 87428; 88304; 88307; 94640; 94762; 99282; J7030; J7050; J7120; Q9967; A4216; C1760; J2405

== ENCOUNTER 2022-09-29 22:24 | Emergency (ER) | payer MEDICAID, SELFPAY ==
[2022-09-29 22:25] VITALS: BP 114/77; PULSE 86; RESP 18; TEMP 36.6; O2SAT 100; BMI 34.9
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
[2022-09-29] MEDS: Oxycodone/Apap 5/325 Tablet PO (23:15)
== END 2022-09-29 23:19 | disposition home or self-care (01) ==
PROVIDERS: Emergency Provider Emergency Medicine; Visit Provider Emergency Medicine
DX: Z87.891 Personal history of nicotine dependence (principal); T31.0 Burns involving less than 10% of body surface; T21.22XA Burn of second degree of abdominal wall, initial encounter; X12.XXXA Contact with other hot fluids, initial encounter; Y93.G3 Activity, cooking and baking
CPT/HCPCS: 99283

== ENCOUNTER 2023-09-12 14:03 | Emergency (ER) | payer MEDICAID, SELFPAY ==
[2023-09-12 14:04] VITALS: BP 123/82; PULSE 73; RESP 18; TEMP 36; O2SAT 98; BMI 34.9
[2023-09-12] MEDS: Dicyclomine 10 MG Capsule 20 MG PO (16:23)
[2023-09-12] MEDS: Ondansetron ODT 4 MG Tablet PO (16:23)
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
[2023-09-12 17:39] VITALS: BP 123/82; PULSE 73; RESP 18; TEMP 36; O2SAT 98
[2023-09-12 17:40] VITALS: BP 111/72; PULSE 67; RESP 16; TEMP 36.6; O2SAT 100
== END 2023-09-12 17:43 | disposition home or self-care (01) ==
PROVIDERS: Emergency Provider Emergency Medicine; PCP Student in an Organized Health Care Education/Training Program; Visit Provider Emergency Medicine
DX: T50.905A Adverse effect of unspecified drugs, medicaments and biological substances, initial encounter (principal); R11.0 Nausea; R20.8 Other disturbances of skin sensation; R10.32 Left lower quadrant pain; Z87.891 Personal history of nicotine dependence; R10.31 Right lower quadrant pain
CPT/HCPCS: 99283

== ENCOUNTER → 2023-11-06 | Outpatient (CLI) | payer MEDICAID, SELFPAY ==
--- NOTE | 2023-11-06 11:47 | RAD_ITS ---
STUDY: X-RAY - PELVIS AND RIGHT HIP REASON FOR EXAM: Female, 38 years old. R HIP PAIN TECHNIQUE: 3 views of the pelvis and right hip. COMPARISON: None. FINDINGS: There is a non-specific bowel gas pattern. Normal visualized soft tissue structures. Normal bilateral iliac wings, sacroiliac joints and visualized sacrum. Normal bilateral superior and inferior pubic rami. Normal pubic symphysis. Normal bilateral ischial tuberosities. Normal visualized femoral head. Normal acetabulum. Normal hip joint. RAD/HIP, UNI W/ Pelvis 2-3 Views IMPRESSION: Normal x-ray examination of the pelvis and right hip. Electronically Signed: Nam Alva MD at 14:45 EDT ,
== END | disposition home or self-care (01) ==
PROVIDERS: PCP Student in an Organized Health Care Education/Training Program; Referring Provider Anesthesiology; Visit Provider Anesthesiology
DX: M25.551 Pain in right hip (principal)
CPT/HCPCS: 73502

== ENCOUNTER → 2024-08-10 | Outpatient (CLI) | payer MEDICAID, SELFPAY ==
--- NOTE | 2024-08-10 11:06 | MRI_ITS ---
PROCEDURE: LOWER EXT JOINT ONLY (ROUTINE) 08/10/2024 REASON FOR EXAM: PAIN TECHNIQUE: MRI of the left lower Extremity. T1, T2, stir, multiplanar and multisequence images were obtained without IV contrast administration. COMPARISON: COMPARISON : June 28, 2024 x-ray FINDINGS: Bone marrow and osseous structures: There is no abnormal marrow edema to suggest stress reaction or fracture. There is no MR evidence of avascular necrosis. Articular cartilage: No significant joint space narrowing. No full or partial- thickness cartilage defects are identified. Labrum: No discrete labral tear or paralabral cyst. Hip joint: There is no intra-articular body. The ligamentum teres is unremarkable. Hip abductors: The gluteus medius and minimus tendons are show moderate distal tendinopathy without full-thickness tear or retraction. There is a small amount of fluid in the trochanteric bursa, with bursitis. Iliopsoas tendon: Intact without tendinosis or tear. No iliopsoas bursitis. The hamstring origins are intact. MRI/Lower Ext Joint Only (Routine) IMPRESSION: The gluteus medius and minimus tendons are show moderate distal tendinopathy wi thout full-thickness tear or retraction. There is a small amount of fluid in the trochanteric bursa, with bursitis. Reading Location: [facility]
== END | disposition home or self-care (01) ==
LOC: MRI 11:05
PROVIDERS: PCP Student in an Organized Health Care Education/Training Program; Referring Provider Orthopaedic Surgery; Visit Provider Orthopaedic Surgery
DX: M25.552 Pain in left hip (principal); M25.551 Pain in right hip
CPT/HCPCS: 73721

== ENCOUNTER 2024-09-05 09:52 | Emergency (ER) | payer MEDICAID, SELFPAY ==
[2024-09-05 09:53] VITALS: BP 116/78; PULSE 77; RESP 16; TEMP 36.9; O2SAT 100; BMI 32.8
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
--- NOTE | 2024-09-05 10:13 | US_ITS ---
PROCEDURE: GALLBLADDER 09/05/2024 REASON FOR EXAM: PAIN COMPARISON: CT exam February 25, 2022 FINDINGS: Liver: Normal length of 13.9 cm echogenicity is normal. No biliary ductal dilatation. Normal hepatopetal flow in the portal vein. Gallbladder: To get your complimentary sampling Common bile duct: Gallbladder is 9.6 cm in length Paul's sign is absent pericholecystic gallstones . Pancreas: Normal limits Right kidney: Normal size with normal cortical thickness. Right kidney measures 10.6 x 5.2 x 5 cm no renal calculi. No hydronephrosis. US/Gallbladder IMPRESSION: No acute process detected. Reading Location[facility]
[2024-09-05] MEDS: Ketorolac 15 MG/ML Vial IV (10:24)
[2024-09-05] MEDS: Ondansetron 4 MG/2 ML Vial IV (10:24)
[2024-09-05] MEDS: 0.9% Normal Saline (1000mL) 1,000 ML 999 ML IV (10:24)
[2024-09-05] MEDS: Morphine 4 MG/ML Syringe IV (10:24)
[2024-09-05 10:36] LABS: Absolute Lymphocyte Count 1.67 X10^3/uL (0.83-4.51); Absolute Neutrophil Count 4.6 X10^3/uL (2.0-7.7); Basophil# 0.03 X10^3/uL; Basophil% 0.4 % (0-1); Eosinophil# 0.07 X10^3/uL; Hematocrit 39.3 % (37-47); Hemoglobin 13.1 g/dL (12.0-15.0); Lymphocyte # 1.67 X10^3/ul (0.83-4.51); Lymphocyte % 24.9 % (19-41); Mean Corp Hgb Conc 33.3 g/dL (32-36); Mean Corpuscular Hgb 28.9 pg (27.0-32.0); Mean Corpuscular Volume 86.6 fL (81-99); Monocyte# 0.36 X10^3/uL; Monocyte% 5.4 % (0-10); NRBC Flagged by Analyzer 0 % (0-5); Neutrophil # 4.57 X10^3/uL (2.7-7.7); Platelet Count 308 K/mm3 (150-450); RBC Distribution Width CV 11.9 % (11.6-14.6); RBC Distribution Width SD 38.2 fl (35.1-43.9); Red Blood Count 4.54 M/mm3 (4.2-5.4); White Blood Count 6.7 K/mm3 (4.4-11.0)
--- OUTSIDE RECORDS SUMMARY | 2024-09-05 10:38 | XMS RPT_ITS | CCD ---
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 Translations: [Malignant neoplasm of connective and soft tissue, unspecified] Onset: 12-29-2023 12-26-2023 Chronic Cancer of cervix (8 sources) History of malignant neoplasm of cervix 05-11-2020 Episodic Deficiency and other anemia (2 sources) Iron deficiency anemia due to blood loss; Translations: [Iron deficiency anemia secondary to blood loss (chronic)] 11-19-2023 Chronic Deficiency and other anemia (2 sources) Iron deficiency anemia secondary to blood loss (chronic); Translations: [Iron deficiency anemia secondary to blood loss (chronic)] Onset: 02-16-2024 Chronic Deficiency and other anemia (7 sources) Normocytic anemia 10-28-2023 Episodic Deficiency and other anemia (6 sources) Anemia 12-26-2023 Episodic Diseases of white blood cells (9 sources) Leukocytosis; Translations: [Elevated white blood cell count, unspecified] 10-28-2023 Chronic Disorders of lipid metabolism (5 sources) Mixed hyperlipidemia 06-16-2024 Chronic Comment on above: 07/09 ASCVD risk 0.5% E Codes: Adverse effects of medical drugs (2 sources) Adverse reaction to drug; Translations: [Adverse effect of unspecified drugs, medicaments and biological substances, initial encounter] 09-20-2023 Episodic Headache; including migraine (17 sources) Chronic headache disorder 05-11-2020 Episodic Immunizations and screening for infectious disease (6 sources) Encounter for screening for human papillomavirus (HPV); Translations: [Autoantibody level - finding] Onset: 09-30-2023 Episodic Intestinal infection (2 sources) Viral intestinal infection, unspecified; Translations: [Viral intestinal infection, unspecified] Onset: 07-23-2024 Episodic Malaise and fatigue (1 source) Asthenia; Translations: [Weakness] Episodic Menstrual disorders (20 sources) Intermenstrual bleeding - irregular; Translations: [Irregular periods] 05-01-2020 Chronic Mood disorders (5 sources) Recurrent major depressive episodes, moderate 03-31-2024 Chronic Nausea and vomiting (8 sources) Nausea; Translations: [Nausea] Onset: 07-23-2024 09-20-2023 Episodic Neoplasms of unspecified nature or uncertain behavior (7 sources) Thrombocytosis 10-28-2023 Chronic Neoplasms of unspecified nature or uncertain behavior (2 sources) Thrombocytosis; Translations: [Thrombocythemia] 11-19-2023 Episodic Other and unspecified benign neoplasm (2 sources) Benign neoplasm of abdomen; Translations: [Other benign neoplasm of skin of trunk] 02-09-2024 Episodic Other and unspecified benign neoplasm (2 sources) Other benign neoplasm of skin of trunk; Translations: [Other benign neoplasm of skin of trunk] Onset: 02-09-2024 Episodic Other and unspecified benign neoplasm (5 sources) Hibernoma 03-05-2024 Episodic Other connective tissue disease (17 sources) Bursitis of right hip; Translations: [Other bursitis of hip, right hip] 06-06-2023 Episodic Other connective tissue disease (7 sources) Disorder of abdominal wall 06-06-2023 Episodic Other connective tissue disease (2 sources) Mass of soft tissue; Translations: [Other specified soft tissue disorders] 01-07-2024 Episodic Other connective tissue disease (3 sources) Disorder of soft tissue; Translations: [Other specified soft tissue disorders] Onset: 02-09-2024 02-09-2024 Episodic Other connective tissue disease (1 source) Other specified soft tissue disorders; Translations: [Other specified soft tissue disorders] Onset: 02-09-2024 Episodic Other female genital disorders (2 sources) Personal history of cervical dysplasia; Translations: [Personal history of cervical dysplasia] Onset: 09-30-2023 Episodic Other gastrointestinal disorders (5 sources) Perforation of small intestine ; Translations: [Perforation of intestine (nontraumatic)] 03-14-2022 Episodic Other gastrointestinal disorders (2 sources) Perforation of intestine (nontraumatic); Translations: [Perforation of intestine] Episodic Other gastrointestinal disorders (16 sources) Constipation 06-06-2023 Episodic Other gastrointestinal disorders (12 sources) Abdominal mass; Translations: [Localized swelling, mass and lump, trunk] 09-08-2023 Episodic Other gastrointestinal disorders (2 sources) Constipation alternates with diarrhea 08-25-2024 Episodic Other gastrointestinal disorders (2 sources) Other specified symptoms and signs involving the digestive system and abdomen; Translations: [Other specified symptoms and signs involving the digestive system and abdomen] Onset: 08-27-2024 Episodic Other liver diseases (6 sources) Alkaline phosphatase raised 12-26-2023 Episodic Other nervous system disorders (1 source) Postoperative pain ; Translations: [Other acute postprocedural pain] Onset: 09-11-2023 Episodic Other non-traumatic joint disorders (1 source) Bone spur of vertebra; Translations: [Osteophyte, vertebrae] Chronic Other non-traumatic joint disorders (5 sources) Hip pain; Translations: [Pain in right hip] 06-28-2024 Episodic Other non-traumatic joint disorders (1 source) Pain in left hip; Translations: [Pain in left hip] Onset: 08-17-2024 Episodic Other non-traumatic joint disorders (1 source) Pain in right hip; Translations: [Pain in right hip] Onset: 06-28-2024 Episodic Other screening for suspected conditions (not mental disorders or infectious disease) (2 sources) Encounter for screening for malignant neoplasm of cervix; Translations: [Encounter for screening for malignant neoplasm of cervix] Onset: 09-30-2023 Episodic Other skin disorders (2 sources) Localized swelling, mass and lump, trunk; Translations: [Localized swelling, mass and lump, trunk] Onset: 01-09-2024 Episodic Ovarian cyst (1 source) Cyst of ovary 09-05-2023 Episodic Residual codes; unclassified (8 sources) History of laparoscopy 06-01-2020 Episodic Residual codes; unclassified (8 sources) Flushing 10-24-2023 Episodic Spondylosis; intervertebral disc disorders; other back problems (14 sources) Lumbar spondylosis; Translations: [Spondylosis without myelopathy or radiculopathy, lumbar region] Chronic Spondylosis; intervertebral disc disorders; other back problems (20 sources) Chronic low back pain; Translations: [Narrowing of intervertebral disc space] 05-11-2020 Episodic Comment on above: L5-S1 on xray 05/07 Unclassified (8 sources) Malposition of intrauterine contraceptive device 05-01-2020 Unclassified (2 sources) New Patient; Translations: [New Patient] Onset: 01-06-2024 Past or Other Problems Problem Classification Problem Date Documented Da te Episodic/Chronic Deficiency and other anemia (3 sources) Anemia, unspecified; Translations: [Anemia, unspecified] Onset: 11-10-2023 Episodic Nutritional deficiencies (16 sources) Cobalamin deficiency; Translations: [Iron deficiency] Onset: 12-29-2023 12-26-2023 Episodic Other liver diseases (2 sources) Abnormal levels of other serum enzymes; Translations: [Abnormal levels of other serum enzymes] Onset: 12-29-2023 Episodic Results Test Name Value Interpretation Reference Range Facility .O and P [id number] 09-01-2024 O and P 1 Comment Normal [facility] Comment on above: Result Comment: No o va, cysts, or parasites seen. One negative specimen does not rule out the possibility of a parasitic infection. Performed At: [address] [id number] Dominick Bhandari PhD Ph:[phone] Performed By: #### 0 [id number] #### [facility] [address] [place], [place] [address] #### STGIPCR, FCAL, [id number] #### [facility] [address] [place] [address] OVAPon 09-01-2024 Ova + Parasite Status Final report Normal [facility] Comment on above: Result Comment: Thes e results were obtained using wet preparation(s) and trichrome stained smear. This test does not include testing for Cryptosporidium parvum, Cyclospora, or Microsporidia. Performed At: [facility] [address] [place], [place] [id number] Dominick Bhandari PhD Ph:[phone] Performed By: #### 0 [id number] #### [facility] [address] [place], [place] [address] #### STGIPCR, FCAL, [id number] #### [address] [address] FCALon 08-31-2024 Calprotectin 199 mcg/gm [facility] Comment on above: Result Comment: Calprotectin Concentration Interpretation Follow-up <80mcg/gm Normal None 80-160 mcg/gm Borderline Reevaluate in 4 to 6 weeks >160 mcg/gm Abnormal Repeat as clincally indicated Performed By: #### 0 [id number] #### [address] [address] #### STGIPCR, FCAL, [id number] #### [place] [id number] US ABDOMEN COMPLETEon 2024 US ABDOMEN COMPLETE ORIGINAL EXAMINATION: COMPLETE ABDOMINAL ULTRASOUND 08/30/2024 12:23 pm COMPARISON: None. HISTORY: ORDERING SYSTEM PROVIDED HISTORY: Reason for Exam: abdominal pain FINDINGS: LIVER: The liver demonstrates normal echogenicity without evidence of intrahepatic biliary ductal dilatation. The liver measures 14.2 cm. Antegrade flow in the main portal vein. BILIARY SYSTEM: Gallbladder is unremarkable without evidence of pericholecystic fluid, wall thickening or stones. Negative sonographic Paul's sign. Common bile duct is within normal limits measuring 3.5 mm. KIDNEYS: The kidneys are unremarkable in appearance without evidence of hydronephrosis. The right kidney measures 11.5 cm. The left kidney measures 12.8 cm. PANCREAS: Visualized portions of the pancreas are diffusely echogenic which may be related to fatty infiltration. SPLEEN: The spleen is unremarkable in appearance. Spleen is within normal limits in size. The aorta and IVC are obscured due to shadowing bowel gas. OTHER: No evidence of ascites. IMPRESSION: No acute upper abdominal findings. Interpreted by: Justo Coates Preliminary Report By: Justo Coates Electronically signed By Justo Coates Dictated Date: 08/30/2024 1:02:01 PM Prelim Date: 08/30/2024 1:09:55 PM Sign Date: 08/30/2024 1:09:55 PM Ordering Provider: RM Barrios [facility] US TRANSVAGINAL NON OBon US TRANSVAGINAL NON OB ORIGINAL EXAMINATION: TRANSVAGINAL PELVIC ULTRASOUND08/30/2024 12:26 pm Ultrasound Pelvis: Transabdominal and transvaginal study COMPARISON: CT 08/20/2023 TECHNIQUE: This report is based on interpretation of permanently recorded ultrasound images. HISTORY: ORDERING SYSTEM PROVIDED HISTORY: Reason for Exam: abdominal pain, ovarian cyst on CT, FINDINGS: The uterus is 9.7 x 5.6 x 3.6 cms. There is probably a sub septate type of uterine anatomy.. No myometrial mass lesion is seen. The Endometrium is 11 mm in double wall thickness which is within normal limits for age. Right ovary: 3.0 x 1.7 x 2.8 cm. Left ovary: 2.7 x 2.9 x 2.8 cm. The ovaries are best seen transabdominally. There are small follicles in both ovaries. No suspicious ovarian lesion is seen.. No concerning ovarian cyst or mass is seen. There is blood flow to both ovaries. No pelvic or adnexal masses or significant free fluid is seen. IMPRESSION: No significant findings. Interpreted by: Denilson Cartagena MD Preliminary Report By: Denilson Cartagena MD Electronically signed By Denilson Cartagena MD Dictated Date: 08/30/2024 1:05:24 PM Prelim Date: 08/30/2024 1:07:20 PM Sign Date: 08/30/2024 1:07:20 PM Ordering Provider: RM Barrios [facility] LABORATORYOrdered By: Laila Boyd on 08-27-2024 Adenovirus 40+41 DNA MADI+non-probe Ql (Stl) Not Detected *NA* (08/27/24 12:54 PM) Invalid Interpretation Code Not Detected AH Auto Microbiology GL SS Astrovirus subtypes 1-8 RNA MADI+non-probe Ql (Stl) Not Detected *NA* (08/27/24 12:54 PM) Invalid Interpretation Code Not Detected AH Auto Microbiology GL SS C. cayetanensis DNA MADI+non-probe Ql (Stl) Not Detected *NA* (08/27/24 12:54 PM) Invalid Interpretation Code Not Detected AH Auto Microbiology GL SS C. coli+jejuni+upsalie nsis DNA MADI+non-probe Ql (Stl) Not Detected *NA* (08/27/24 12:54 PM) Invalid Interpretation Code Not Detected AH Auto Microbiology GL SS Cryptosporidium sp DNA MADI+non-probe Ql (Stl) Not Detected *NA* (08/27/24 12:54 PM) Invalid Interpretation Code Not Detected AH Auto Microbiology GL SS E. coli enteroaggregative Sam plasmid aggR+aatA genes MADI+non-probe Ql (Stl) Not Detected *NA* (08/27/24 12:54 PM) Invalid Interpretation Code Not Detected AH Auto Microbiology GL SS E. coli enteropathogenic eae gene MADI+non-probe Ql (Stl) Not Detected *NA* (08/27/24 12:54 PM) Invalid Interpretation Code Not Detected AH Auto Microbiology GL SS E. coli enterotoxigenic ltA+st1a+st1b genes MADI+non-probe Ql (Stl) Not Detected *NA* (08/27/24 12:54 PM) Invalid Interpretation Code Not Detected AH Auto Microbiology GL SS E. coli O157 DNA MADI+non-probe Ql (Stl) Not Applicable (08/27/24 12:54 PM) Normal Not Detected AH Auto Microbiology GL SS E. coli stx1+stx2 genes MADI+non-probe Ql (Stl) Not Detected *NA* (08/27/24 12:54 PM) Invalid Interpretation Code Not Detected AH Auto Microbiology GL SS E. histolytica DNA MADI+non-probe Ql (Stl) Not Detected *NA* (08/27/24 12:54 PM) Invalid Interpretation Code Not Detected AH Auto Microbiology GL SS G. lamblia DNA MADI+non-probe Ql (Stl) Not Detected *NA* (08/27/24 12:54 PM) Invalid Interpretation Code Not Detected AH Auto Microbiology GL SS Norovirus genogroup I+II RNA MADI+non-probe Ql (Stl) Detected *ABN* (08/27/24 12:54 PM) Invalid Interpretation Code Not Detected AH Auto Microbiology GL SS Plesiomonas shigelloides Not Detected *NA* (08/27/24 12:54 PM) Invalid Interpretation Code Not Detected AH Auto Microbiology GL SS Rotavirus A RNA MADI+non-probe Ql (Stl) Not Detected *NA* (08/27/24 12:54 PM) Invalid Interpretation Code Not Detected AH Auto Microbiology GL SS S. enterica+bongori DNA MADI+non-probe Ql (Stl) Not Detected *NA* (08/27/24 12:54 PM) Invalid Interpretation Code Not Detected AH Auto Microbiology GL SS Sapovirus genogroups I+II+IV+V RNA MADI+non-probe Ql (Stl) Not Detected *NA* (08/27/24 12:54 PM) Invalid Interpretation Code Not Detected AH Auto Microbiology GL SS Shigella species+EIEC invasion plasmid antigen H ipaH gene MADI+non-probe Ql (Stl) Not Detected *NA* (08/27/24 12:54 PM) Invalid Interpretation Code Not Detected AH Auto Microbiology GL SS Stool GI Comment See Comment 1 (08/27/24 12:54 PM) Normal [facility] GL SS Comment on above: Interpretive Data: V irus, bacteria, and parasite nucleic acid may persist in vivo independently of organism viability. Negative Film Array GI panel results in the setting of clinical illness compatible with gastroenteritis may be due to infection by pathogens that are not detected by this test. False negatives may occur due to genetic variability in the region targeted by the primers. V. cholerae DNA MADI+non-probe Ql (Stl) Not Detected *NA* (08/27/24 12:54 PM) Invalid Interpretation Code Not Detected AH Auto Microbiology GL SS V. cholerae+parahaemol yticus+vulnificus DNA MADI+non-probe Ql (Stl) Not Detected *NA* (08/27/24 12:54 PM) Invalid Interpretation Code Not Detected AH Auto Microbiology GL SS Y. enterocolitica DNA MADI+non-probe Ql (Stl) Not Detected *NA* (08/27/24 12:54 PM) Invalid Interpretation Code Not Detected AH Auto Microbiology GL SS LABORATORYOrdered By: Vonnie galeano on 08-27-2024 Calprotectin (Stl) [Mass/Mass] 199 mcg/gm Invalid Interpretation Code AH ADM SS Comment on above: Interpretive Data: Calprotectin Concentration Interpretation Follow-up <80mcg/gm Normal None 80-160 mcg/gm Borderline Reevaluate in 4 to 6 weeks >160 mcg/gm Abnormal Repeat as clincally indicated LABORATORYOrdered By: Yulia Simon on 08-27-2024 Hemoglobin.gastroin testinal Ql (Stl) Negative (08/27/24 12:54 PM) Normal Negative AO Rapid Testing SS OCC (LAB)on 08-27-2024 Occult Blood Fecal Negative Normal Negative [facility] Comment on above: Performed By: #### O CC #### [place] [address] STGIPCRon 08-27-2024 Adenovirus F 40/41 Not detected Normal Not Detected [facility] Comment on above: Performed By: #### 0 [id number] #### [place] [address] #### STGIPCR, FCAL, [id number] #### [facility] [address] [place] [address] Astrovirus Not detected Normal Not Detected [facility] Comment on above: Performed By: #### 0 [id number] #### [place] [address] #### STGIPCR, FCAL, [id number] #### [address] [address] Campy (jejuni/coli/ups) Not detected Normal Not Detected [facility] Comment on above: Performed By: #### 0 [id number] #### [place] [address] #### STGIPCR, FCAL, [id number] #### [address] [address] Cryptosporidium Not detected Normal Not Detected [facility] Comment on above: Performed By: #### 0 [id number] #### [place] [address] #### STGIPCR, FCAL, [id number] #### [facility] [address] [place] [address] Cyclospora Not detected Normal Not Detected [facility] Comment on above: Performed By: #### 0 [id number] #### [place] [address] #### STGIPCR, FCAL, [id number] #### [facility] [address] [place] [address] E. coli (ETEC) Not detected Normal Not Detected [facility] Comment on above: Performed By: #### 0 [id number] #### [address] [address] #### STGIPCR, FCAL, [id number] #### [facility] [address] [place] [address] E. coli O157 Not Applicable Normal Not Detected [facility] Comment on above: Performed By: #### 0 [id number] #### [address] [address] #### STGIPCR, FCAL, [id number] #### [facility] [address] [place] [address] Entamoeba histolytica Not detected Normal Not Detected [facility] Comment on above: Performed By: #### 0 [id number] #### [address] [address] #### STGIPCR, FCAL, [id number] #### [facility] [address] [place] [address] Enteroaggregative E. coli (EAEC) Not detected Normal Not Detected [facility] Comment on above: Performed By: #### 0 [id number] #### [address] [address] #### STGIPCR, FCAL, [id number] #### [facility] [address] [place] [address] Enteropathogenic E. coli (EPEC) Not detected Normal Not Detected [facility] Comment on above: Performed By: #### 0 [id number] #### [address] [address] #### STGIPCR, FCAL, [id number] #### [facility] [address] [place] [address] Giardia lamblia Not detected Normal Not Detected [facility] Comment on above: Performed By: #### 0 [id number] #### [address] [address] #### STGIPCR, FCAL, [id number] #### [facility] [address] [place] [address] Norovirus GI/GII Detected Abnormal Not Detected [facility] Comment on above: Performed By: #### 0 [id number] #### [address] [address] #### STGIPCR, FCAL, [id number] #### [facility] [address] [place] [address] Plesiomonas shigelloides Not detected Normal Not Detected [facility] Comment on above: Performed By: #### 0 [id number] #### [place] [address] #### STGIPCR, FCAL, [id number] #### [place] [address] Rotavirus A Not detected Normal Not Detected [facility] Comment on above: Performed By: #### 0 [id number] #### [place] [address] #### STGIPCR, FCAL, [id number] #### [place] [address] Salmonella species, stool Not detected Normal Not Detected [facility] Comment on above: Performed By: #### 0 [id number] #### [place] [address] #### STGIPCR, FCAL, [id number] #### [place] [address] Sapovirus I,II,IV,V Not detected Normal Not Detected [facility] Comment on above: Performed By: #### 0 09198 #### [address] [address] #### STGIPCR, FCAL, [id number] #### [place] [address] Shig Tox E. coli (STEC) Not detected Normal Not Detected [facility] Comment on above: Performed By: #### 0 [id number] #### [place] [address] #### STGIPCR, FCAL, [id number] #### [facility] [address] [place] [address] Shigella/Enteroinva sive E. coli (EIEC) Not detected Normal Not Detected [facility] Comment on above: Performed By: #### 0 13635 #### [place] [address] #### STGIPCR, FCAL, [id number] #### [place] [address] Stool GI Comment See Comment Normal [facility] Comment on above: Result Comment: Viru s, bacteria, and parasite nucleic acid may persist in vivo independently of organism viability. Negative Film Array GI panel results in the setting of clinical illness compatible with gastroenteritis may be due to infection by pathogens that are not detected by this test. False negatives may occur due to genetic variability in the region targeted by the primers. Performed By: #### 0 [id number] #### [place] [address] #### STGIPCR, FCAL, [id number] #### [place] [address] Vibrio cholerae Not detected Normal Not Detected [facility] Comment on above: Performed By: #### 0 [id number] #### [place] [address] #### STGIPCR, FCAL, [id number] #### [place] [address] Vibrio par/vul/chol Not detected Normal Not Detected [facility] Comment on above: Performed By: #### 0 [id number] #### [place] [address] #### STGIPCR, FCAL, [id number] #### [place] [id number] Yersinia enterocolitica Not detected Normal Not Detected [facility] Comment on above: Performed By: #### 0 [id number] #### [place] [address] #### STGIPCR, FCAL, [id number] #### [facility] [address] [place] [address] GLIADon 08-24-2024 Gliadin Ab IgA <20 Normal <=19 [facility] Comment on above: Result Comment: Glia din IgG and IgA Ab Interpretation (effective 02/09/07): Result Units Negative <20 Weak Positive 20-30 Moderate to Strong Positive >30 Both IgG and IgA antibodies to gliadin are present in most patients with celiac disease (CD). However, antibody to gliadin may be present in Crohn's disease, dermatitis herpetiformis or in subjects with no clinical evidence of intestinal disease. In healthy individuals with a family history of CD, the antibodies may precede the clinical onset of disease in approximately 25% of the subjects. Gliadin antibody levels will decrease or increase depending on the removal or reintroduction of gluten into the diet. Patients who are IgA deficient develop celiac disease more frequently than individuals who have an intact IgA system. Therefore, gliadin and transglutaminase IgA antibodies may be absent in patients with celiac disease. IgG antibodies to gliadin are especially helpful in IgA deficient patients. A negative result indicates no gliadin antibody or levels below the negative cut-off of the assay. Results of this assay should be used in conjunction with clinical findings and other serological tests. These test results were obtained with the SANDOW QUANTA Lite Gliadin IgG II and Gliadin IgA II. Gliadin values obtained with different manufacturers' assay methods may not be used interchangeably. Performed By: #### O #### [address] [address] Gliadin Ab IgG <20 Normal <=19 [facility] Comment on above: Result Comment: Glia din IgG and IgA Ab Interpretation (effective 02/09/07): Result Units Negative <20 Weak Positive 20-30 Moderate to Strong Positive >30 Both IgG and IgA antibodies to gliadin are present in most patients with celiac disease (CD). However, antibody to gliadin may be present in Crohn's disease, dermatitis herpetiformis or in subjects with no clinical evidence of intestinal disease. In healthy individuals with a family history of CD, the antibodies may precede the clinical onset of disease in approximately 25% of the subjects. Gliadin antibody levels will decrease or increase depending on the removal or reintroduction of gluten into the diet. Patients who are IgA deficient develop celiac disease more frequently than individuals who have an intact IgA system. Therefore, gliadin and transglutaminase IgA antibodies may be absent in patients with celiac disease. IgG antibodies to gliadin are especially helpful in IgA deficient patients. A negative result indicates no gliadin antibody or levels below the negative cut-off of the assay. Results of this assay should be used in conjunction with clinical findings and other serological tests. These test results were obtained with the Max RumpusVA QUANTA Lite Gliadin IgG II and Gliadin IgA II. Gliadin values obtained with different manufacturers' assay methods may not be used interchangeably. Performed By: #### O CC #### [address] [address] TTGIGGon 08-24-2024 tTG IgG 6 units/ml High 0-5 [facility] Comment on above: Result Comment: Nega tive 0 - 5 Weak Positive 6 - 9 Positive >9 Performed At: [facility] [id number] Dominick Bhandari PhD Ph:[phone] Performed By: #### O CC #### [address] [address] Orthopedic Visit Reporton Orthopedic Visit Report [facility] [address] [place] [address] OFFICE VISIT Date of Service: 08/16/24 MR#: [id number] Acct: [id number] Name: SILVIA WANG Rep #: [id number] : 1985 Provider: Dr. Giovanny stephenson, DO Age/Sex: 39/F Location: [facility] [place] Status: Signed Intake Vital Signs 06/28/24 09:46 Height 5 ft Weight: 176 lb 4 oz BMI 34.4 Intake Visit Reasons: BL HIPS Chief Complaint: MRI Review Accompanied by: Kids Is patient in pain?: Yes Pain scale (1-10): 8 Allergies bisacodyl Allergy (Severe, Verified 08/16/24 15:48) Swelling marijuana (cannabis) Allergy (Severe, Verified 08/16/24 15:48) Hives prednisone Allergy (Verified 08/16/24 15:48) Nausea and Vomitting Medications ???Medication ???Instructions ???Recorded ???Confirmed ???Type baclofen 5 mg tablet 5 mg PO TID PRN 06/28/24 08/16/24 History celecoxib 100 mg capsule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 aorta is normal. No lymphadenopathy. No free air or free fluid. IMPRESSION: Multiple fat containing paraumbilical hernias, the largest of which is at the level of the umbilicus and also contains a small portion of small bowel. Incidental 8.9 cm lesion between the left external and internal oblique muscles. This is predominantly fatty however there appear to be areas of internal enhancement/vascularity. Overall appearance is atypical for a simple lipoma and the possibility of liposarcoma is raised. Further evaluation with MRI with IV contrast is recommended. Consider orthopedics consultation for biopsy considerations. 1.9 cm left ovarian cystic lesion is favored to represent a corpus luteal cyst or possibly hemorrhagic cyst. If symptomatic consider pelvis ultrasound. I have personally reviewed the images of this examination and agree with the resident's findings and interpretation. Interpreted by: Keven Fitzpatrick MD Preliminary Report By: Maryanne Holliday Electronically signed By Keven Fitzpatrick MD Dictated Date: 08/20/2023 1:26:42 PM Prelim Date: 08/20/2023 2:39:57 PM Sign Date: 08/20/2023 2:39:57 PM Ordering Provider: LEANNE MONTEZ Pending Sale To [facility] ([place]) MRI SPINE LUMBAR W/O CONTRAS Ton 08-09-2023 MRI SPINE LUMBAR W/O CONTRAST ORIGINAL EXAMINATION: MRI OF THE LUMBAR SPINE WITHOUT CONTRAST, 08/05/2023 2:38 pm TECHNIQUE: Multiplanar multisequence MRI of the lumbar spine was performed without the administration of intravenous contrast. COMPARISON: Correlation with CT abdomen pelvis with contrast 11/02/2014. HISTORY: ORDERING SYSTEM PROVIDED HISTORY: Reason for Exam: chronic low back pain without sciatica FINDINGS: BONES/ALIGNMENT: There is normal alignment of the spine. The vertebral body heights are maintained. L3 intraosseous hemangioma, otherwise the bone marrow signal appears unremarkable. SPINAL CORD: The conus terminates normally. SOFT TISSUES: No paraspinal mass identified. L1-L2: There is no significant disc herniation, spinal canal stenosis or neural foraminal narrowing. L2-L3: There is no significant disc herniation, spinal canal stenosis or neural foraminal narrowing. L3-L4: There is no significant disc herniation, spinal canal stenosis or neural foraminal narrowing. L4-L5: There is no significant disc herniation, spinal canal stenosis or neural foraminal narrowing. L5-S1: There is no significant disc herniation, spinal canal stenosis or neural foraminal narrowing. IMPRESSION: Normal MRI lumbar spine. Interpreted by: Mazin Blackwell Preliminary Report By: Mazin Blackwell Electronically signed By Mazin Blackwell Dictated Date: 08/09/2023 4:00:30 PM Prelim Date: 08/09/2023 4:09:52 PM Sign Date: 08/09/2023 4:09:52 PM Ordering Provider: RM Barrios [facility] ([place] US ABDOMEN LIMITEDon 024 US ABDOMEN LIMITED ORIGINAL EXAMINATION: RIGHT UPPER QUADRANT ULTRASOUND 06/30/2023 7:50 am COMPARISON: None. HISTORY: ORDERING SYSTEM PROVIDED HISTORY: Reason for Exam: right abdominal mass, history of bowel resection FINDINGS: Directed real-time imaging of the right periumbilical region performed, at the site of reported hardness. There is a 2.7 x 2 cm anterior abdominal wall defect with a hernia measuring 3.3 x 3.1 x 1.2 cm. Hernia contains fat and bowel loops and is reducible when the patient is recumbent.. IMPRESSION: Right periumbilical hernia containing fat and bowel loops. Interpreted by: Kilo Lisa DO Preliminary Report By: Kilo Lisa DO Electronically signed By Kilo Lisa DO Dictated Date: 06/30/2023 9:08:28 AM Prelim Date: 06/30/2023 9:11:09 AM Sign Date: 06/30/2023 9:11:09 AM Ordering Provider: RM Barrios [facility] ([place] XR SPINE LUMBAR W/OBLIQUES 4 VIEWSon 06-09-2023 XR SPINE LUMBAR W/OBLIQUES 4 VIEWS ORIGINAL EXAMINATION: 5 XRAY VIEWS OF THE LUMBAR SPINE06/06/2023 11:41 am LUMBAR SPINE W/ OBLIQUES COMPARISON: 05/11/2020 HISTORY: ORDERING SYSTEM PROVIDED HISTORY: Reason for Exam: chronic low back pain with sciatica FINDINGS: The lumbar vertebral body heights are normal. There is a mild marginal disc osteophyte at L4-5. Disc heights are relatively preserved. There is only mild facet arthropathy. No definite pars defects visible. Surgical changes noted in the right abdomen. IMPRESSION: Mild degenerative changes. Interpreted by: Kilo Monroy MD Preliminary Report By: Kilo Monroy MD Electronically signed By Kilo Monroy MD Dictated Date: 06/09/2023 8:18:35 AM Prelim Date: 06/09/2023 8:19:30 AM Sign Date: 06/09/2023 8:19:30 AM Ordering Provider: RM CABRERA Pending [facility] ([place]) Absolute lymphocyte counton 03-06-2022 Lymphocytes Auto (Unsp spec) [#/Vol] 2.23 10*3/uL 0.83-4.51 [facility] Work Phone: Basophil percentageon 2021 Basophils/100 WBC (Bld) 0.3 % 0-1 [facility] Work Phone: Chloride [Moles/Vol] 114 mmol/L 98-107 [facility] Work Phone: Eosinophils/100 WBC (Bld) 0.3 % 0-5 [facility] Work Phone: Glucose [Mass/Vol] 91 mg/dL 74-106 [facility] Work Phone: Neutrophils (Bld) [#/Vol] 4.1 10*3/uL 2.0-7.7 [facility] Work Phone: Neutrophils/100 WBC (Bld) 60.7 % 47-70 [facility] Work Phone: Potassium [Moles/Vol] 3.6 mmol/L 3.5-5.1 [facility] Work Phone: Sodium [Moles/Vol] 143 mmol/L 136-145 [facility] Work Phone: WBC (Bld) [#/Vol] 6.8 10*3/uL 4.4-11.0 [facility] Work Phone: Blood erythrocytes count (nu mber/volume)on 03-06-2022 RBC (Bld) [#/Vol] 3.30 10*6/uL 4.2-5.4 [facility] Work Phone: Blood hemoglobin measurement (mass/volume)on 03-06-2022 Hemoglobin (Bld) [Mass/Vol] 9.7 g/dL 12.0-15.0 [facility] Work Phone: Blood lymphocytes/100 leukoc yteson 03-06-2022 Lymphocytes/100 WBC (Bld) 32.8 % 19-41 [facility] Work Phone: Blood monocytes/100 leukocyt eson 03-06-2022 Monocytes/100 WBC (Bld) 5.6 % 0-10 [facility] Work Phone: Blood platelet mean volumeon 03-06-2022 Platelet mean volume (Bld) [Entitic vol] 10.0 fL 6.2-12.0 [facility] Work Phone: Determination of erythrocyte mean corpuscular volume (MCV)on 03-06-2022 MCV (RBC) [Entitic vol] 90.0 fL 81-99 [facility] Work Phone: Hematocrit Auto (Bld) [Volum e fraction]on 03-06-2022 Hematocrit (Bld) [Volume fraction] 29.7 % 37-47 [facility] Work Phone: Laboratory - Chemistry and C hemistry - challengeon 03-06-2022 CO2 [Moles/Vol] 25.0 mmol/L 21.0-32.0 [facility] Work Phone: Urea nitrogen/Creatinine [Mass ratio] 9.8 mg/mg 10-20 [facility] Work Phone: Laboratory - Hematology and Cell countson 03-06-2022 Erythrocyte distribution width (RBC) [Entitic vol] 42.5 fL 35.1-43.9 [facility] Work Phone: Erythrocyte distribution width (RBC) [Ratio] 12.7 % 11.6-14.6 [facility] Work Phone: Immature granulocytes/100 WBC (Bld) 0.300 % 0.0-0.9 [facility] Work Phone: Comment on above: IG% - Immature Granu locytes (promyelocytes, myelocytes and metamyelocytes) > 1% indicates that a LEFT SHIFT is Present. MCH (RBC) [Entitic mass] 29.4 pg 27.0-32.0 [facility] Work Phone: Nucleated RBC/100 WBC (Bld) [Ratio] 0 % 0-5 [facility] Work Phone: MCHC Auto (RBC) [Mass/Vol]on 03-06-2022 MCHC (RBC) [Mass/Vol] 32.7 g/dL 32-36 [facility] Work Phone: No Panel Informationon 03-06 Estimated Creatinine Clearance Calc 68.30 ml/min [facility] Work Phone: Estimated GFR (MDRD) Amer 101 mL/min >60 [facility] Work Phone: Comment on above: GFR Calc Estimated GFR (MDRD) Non-Af Amer 84 mL/min >60 [facility] Work Phone: Comment on above: Non- GFR Calc Platelets bldon 03-06-2022 Platelets (Bld) [#/Vol] 235 10*3/uL 150-450 [facility] Work Phone: Serum or plasma calcium joshua urement (mass/volume)on 03-06-2022 Calcium [Mass/Vol] 7.8 mg/dL 8.5-10.1 [facility] Work Phone: Serum or plasma creatinine m easurement (mass/volume)on 03-06-2022 Creatinine [Mass/Vol] 0.81 mg/dL 0.55-1.02 [facility] Work Phone: Comment on above: The validity of the calculated GFR & GFRAA in patients over 70 years has not been determined. Clinical correlation is essential. Serum or plasma urea nitroge n measurement (mass/volume)on 03-06-2022 Urea nitrogen [Mass/Vol] 8 mg/dL 7-18 [facility] Work Phone: Thin prep Papanicolaou smear with manual screeningon 03-06-2022 Thin prep Papanicolaou smear with manual screening 4 5-15 [facility] Work Phone: Absolute lymphocyte counton 03-03-2022 Lymphocytes Auto (Unsp spec) [#/Vol] 1.94 10*3/uL 0.83-4.51 [facility] Work Phone: Basophil percentageon 2021 Basophil percentage 0 SEEN /hpf 0-5 [facility] Work Phone: Basophils/100 WBC (Bld) 0.3 % 0-1 [facility] Work Phone: Bilirubin [Mass/Vol] 0.60 mg/dL 0.20-1.00 [facility] Work Phone: Comment on above: For patients on eltr ombopag therapy, use of Dimension [place] TBIL is not recommended. Chloride [Moles/Vol] 104 mmol/L 98-107 [facility] Work Phone: Eosinophils/100 WBC (Bld) 0.4 % 0-5 [facility] Work Phone: Glucose [Mass/Vol] 116 mg/dL 74-106 [facility] Work Phone: Comment on above: Fasting Glucose resu lt from 100 to 125 mg/dL suggests IMPAIRED HOMEOSTASIS per A.D.A. criteria. Neutrophils (Bld) [#/Vol] 4.9 10*3/uL 2.0-7.7 [facility] Work Phone: Neutrophils/100 WBC (Bld) 64.6 % 47-70 [facility] Work Phone: Potassium [Moles/Vol] 3.4 mmol/L 3.5-5.1 [facility] Work Phone: Protein [Mass/Vol] 8.1 g/dL 6.4-8.2 [facility] Work Phone: Sodium [Moles/Vol] 138 mmol/L 136-145 [facility] Work Phone: WBC (Bld) [#/Vol] 7.5 10*3/uL 4.4-11.0 [facility] Work Phone: Beta hCG serum qualon 2021 Beta HCG ( test) Ql Negative [facility] Work Phone: Bilirubin Test strip Ql (U)o n 03-03-2022 Bilirubin Ql (U) 1 mg/dL Negative [facility] Work Phone: Comment on above: YCOLOR OF URINE MAY AFFECT DIPSTICK RESULTS. Blood erythrocytes count (nu mber/volume)on 03-03-2022 RBC (Bld) [#/Vol] 4.78 10*6/uL 4.2-5.4 [facility] Work Phone: Blood hemoglobin measurement (mass/volume)on 03-03-2022 Hemoglobin (Bld) [Mass/Vol] 13.8 g/dL 12.0-15.0 [facility] Work Phone: Blood lymphocytes/100 leukoc yteson 03-03-2022 Lymphocytes/100 WBC (Bld) 25.8 % 19-41 [facility] Work Phone: Blood monocytes/100 leukocyt eson 03-03-2022 Monocytes/100 WBC (Bld) 8.6 % 0-10 [facility] Work Phone: Blood platelet mean volumeon 03-03-2022 Platelet mean volume (Bld) [Entitic vol] 10.0 fL 6.2-12.0 [facility] Work Phone: Determination of erythrocyte mean corpuscular volume (MCV)on 03-03-2022 MCV (RBC) [Entitic vol] 86.8 fL 81-99 [facility] Work Phone: Hematocrit Auto (Bld) [Volum e fraction]on 03-03-2022 Hematocrit (Bld) [Volume fraction] 41.5 % 37-47 [facility] Work Phone: Ketones Test strip Ql (U)on 03-03-2022 Ketones Ql (U) Negative Negative [facility] Work Phone: Laboratory - Chemistry and C hemistry - challengeon 03-03-2022 ALP [Catalytic activity/Vol] 99 U/L 45-117 [facility] Work Phone: ALT [Catalytic activity/Vol] 21 U/L 13-56 [facility] Work Phone: CO2 [Moles/Vol] 26.0 mmol/L 21.0-32.0 [facility] Work Phone: Globulin (S) [Mass/Vol] 4.5 g/dL 2.2-4.2 [facility] Work Phone: Lipase [Catalytic activity/Vol] 78 U/L 73-393 [facility] Work Phone: Urea nitrogen/Creatinine [Mass ratio] 14.8 mg/mg 10-20 [facility] Work Phone: Laboratory - Hematology and Cell countson 03-03-2022 Erythrocyte distribution width (RBC) [Entitic vol] 38.6 fL 35.1-43.9 [facility] Work Phone: Erythrocyte distribution width (RBC) [Ratio] 12.0 % 11.6-14.6 [facility] Work Phone: Immature granulocytes/100 WBC (Bld) 0.300 % 0.0-0.9 [facility] Work Phone: Comment on above: IG% - Immature Granu locytes (promyelocytes, myelocytes and metamyelocytes) > 1% indicates that a LEFT SHIFT is Present. MCH (RBC) [Entitic mass] 28.9 pg 27.0-32.0 [facility] Work Phone: Nucleated RBC/100 WBC (Bld) [Ratio] 0 % 0-5 [facility] Work Phone: MCHC Auto (RBC) [Mass/Vol]on 03-03-2022 MCHC (RBC) [Mass/Vol] 33.3 g/dL 32-36 [facility] Work Phone: Mucus LM Ql (Urine sed)on Mucus Ql (Urine sed) 0 SEEN /hpf [facility] Work Phone: Nitrite Test strip Ql (U)on 03-03-2022 Nitrite Ql (U) Negative Negative [facility] Work Phone: No Panel Informationon 03-03 Estimated Creatinine Clearance Calc 62.87 ml/min [facility] Work Phone: Estimated GFR (MDRD) Amer 93 mL/min >60 [facility] Work Phone: Comment on above: GFR Calc Estimated GFR (MDRD) Non-Af Amer 77 mL/min >60 [facility] Work Phone: Comment on above: Non- GFR Calc Platelets bldon 03-03-2022 Platelets (Bld) [#/Vol] 287 10*3/uL 150-450 [facility] Work Phone: Protein Test strip Ql (U)on 03-03-2022 Protein Ql (U) 30 mg/dl Negative [facility] Work Phone: Serum or plasma albumin joshua urement (mass/volume)on 03-03-2022 Albumin [Mass/Vol] 3.6 g/dL 3.2-5.0 [facility] Work Phone: Serum or plasma albumin/glob ulin mass ratioon 03-03-2022 Albumin/Globulin [Mass ratio] 0.8 {ratio} 0.9-2.4 [facility] Work Phone: Serum or plasma calcium joshua urement (mass/volume)on 03-03-2022 Calcium [Mass/Vol] 8.9 mg/dL 8.5-10.1 [facility] Work Phone: Serum or plasma creatinine m easurement (mass/volume)on 03-03-2022 Creatinine [Mass/Vol] 0.88 mg/dL 0.55-1.02 [facility] Work Phone: Comment on above: The validity of the calculated GFR & GFRAA in patients over 70 years has not been determined. Clinical correlation is essential. Serum or plasma urea nitroge n measurement (mass/volume)on 03-03-2022 Urea nitrogen [Mass/Vol] 13 mg/dL -18 [facility] Work Phone: Squamous epithelial cells de tection in urine sediment by light microscopyon 03-03-2022 Epithelial cells.squamous LM Ql (Urine sed) 25-50 SEEN /hpf 5-10 [facility] Work Phone: Thin prep Papanicolaou smear with manual screeningon 03-03-2022 Thin prep Papanicolaou smear with manual screening 12 U/L 15-37 [facility] Work Phone: Thin prep Papanicolaou smear with manual screening 8 5-15 [facility] Work Phone: Urine blood detectionon 02-14 RBC Ql (U) 25 /ul Negative [facility] Work Phone: RBC Ql (U) 0-5 SEEN /hpf 0-5 [facility] Work Phone: Urine clarityon 03-03-2022 Clarity (U) Sl. Cloudy Clear [facility] Work Phone: Urine color determinationon 03-03-2022 Color (U) Yellow Yellow [facility] Work Phone: Urine glucose detectionon Glucose Ql (U) Normal mg/dl Normal [facility] Work Phone: Urine leukocyte esterase det ection by dipstickon 03-03-2022 Leukocyte esterase Test strip Ql (U) Negative Negative [facility] Work Phone: Urine pHon 03-03-2022 pH (U) 6.0 [pH] 5.0 - 8.0 [facility] Work Phone: Urine sediment bacteria coun t by microscopy (number/high power field)on 03-03-2022 Bacteria LM.HPF (Urine sed) [#/Area] 0 /[HPF] None Seen [facility] Work Phone: Urine specific gravity measu rementon 03-03-2022 Specific gravity (U) [Rel density] 1.020 1.002-1.030 [facility] Work Phone: Urobilinogen Auto test strip Ql (U)on 03-03-2022 Urobilinogen Ql (U) 8 mg/dl Normal [facility] Work Phone: CNOVon 04-13-2018 CNOV Office Visit ([facility]WSTR ) ----- SILVIA SCOTT ([id number]) 1985 F Date Time Provider Department 04/13/18 2:00 PM 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 No language therapist was used. HPI Silvia Scott is a 32 year old female who presents today for CC of sore throat, cough and chest congestion. This started 2 days ago. She is also having post nasal drainage. The sore throat is only present with a cough. She has tried no treatment or medicaitons. Daughter is in NICU BP 110/80 Pulse 99 Temp 36.9 ?C (98.5 ?F) (Tympanic) Resp 16 Wt 73 kg (161 lb) SpO2 99% Social History Marital status: Single Spouse name: Years of education: Number of children: Social History Main Topics Smoking status: Current Some Day Smoker Packs/day: 0.00 Years: 0.00 Alcohol use: No No past medical history on file. I have confirmed and edited as necessary, the [facility] Review of Systems Constitutional: Negative for chills and fever. HENT: Positive for congestion and sore throat. Negative for ear pain and sinus pain. Respiratory: Positive for cough. Musculoskeletal: Negative for myalgias. Neurological: Negative for headaches. Objective Physical Exam Constitutional: She is well-developed, well-nourished, and in no distress. HENT: Head: Normocephalic and atraumatic. Right Ear: External ear and ear canal normal. Tympanic membrane is not erythematous, not retracted and not bulging. A middle ear effusion is present. Left Ear: Ear canal normal. Tympanic membrane is not erythematous, not retracted and not bulging. A middle ear effusion is present. Nose: Mucosal edema and rhinorrhea present. Right sinus exhibits no maxillary sinus tenderness and no frontal sinus tenderness. Left sinus exhibits no maxillary sinus tenderness and no frontal sinus tenderness. Mouth/Throat: Uvula is midline and mucous membranes are normal. Posterior oropharyngeal edema and posterior oropharyngeal erythema present. No oropharyngeal exudate or tonsillar abscesses. Pulmonary/Chest: Effort normal and breath sounds normal. She has no decreased breath sounds. She has no wheezes. She has no rhonchi. She has no rales. A dry cough was noted during this encounter. Talking in full sentences. Handling secretions without drooling. Lips and nailbeds are pink without cyanosis. Lymphadenopathy: Head (right side): No submental, no submandibular and no tonsillar adenopathy present. Head (left side): No submental, no submandibular and no tonsillar adenopathy present. She has no cervical adenopathy. Neurological: She is alert. Skin: Skin is warm and dry. Psychiatric: Affect normal. Nursing note and vitals reviewed. ASSESSMENT/PLAN: 1. URI with cough and congestion - ICD9: 465.9, ICD10: J06.9 - Discussed viral etiology and rationale for treatment. Rest, increase water intake Motrin or Tylenol as needed for fever or pain. Salt water gargles, chloraseptic spray or lozenges as needed for sore throat. Warm beverages, honey. Nasal saline spray as needed Cool mist humidifier at night A cold normally lasts 7-10 days. If your symptoms are lasting longer, develop fever, or worsening by that time instead of improving then return to clinic or follow up with PCP for re-evaluation. Tylenol (generic acetaminophen) 500 mg-2 tabs every 8 hrs. as needed for fever and aches Ibuprofen 600 mg (3-200mg tablets) every 6 hours Flonase or Nasonex 1 spray each nostril two times a day. - BROMPHENIRAMINE-PSEUDOEPH EDRINE-DM 2 MG-30 MG-10 MG/5 ML ORAL SYRUP DO NOT take any other OTC cough or cold medication while taking the prescription Bromfed DM. It is ok to take an OTC pain reliever/fever lap runner though such as advil or tylenol as needed. * Seek medical care immediately, call 911, go to ER if you have chest pain, difficulty breathing, shortness of breath, inability to swallow. Diagnosis and treatment plan were discussed and questions were answered to the patient's satisfaction. Pt acknowledged understanding of concepts and follow up plan. Specific signs and symptoms that would indicate the need for higher level of care were discussed in detail warranting prompt ER evaluation. ROCIO Velez APRN.CNP 04/13/2018 2:24 PM Signed ASSESSMENT/PLAN: 1. URI with cough and congestion - ICD9: 465.9, ICD10: J06.9 - Discussed viral etiology and rationale for treatment. Rest, increase water intake Motrin or Tylenol as needed for fever or pain. Salt water gargles, chloraseptic spray or lozenges as needed for sore throat. Warm beverages, honey. Nasal saline spray as needed Cool mist humidifier at night A cold normally lasts 7-10 days. If your symptoms are lasting longer, develop fever, or worsening by that time instead of improving then return to clinic or follow up with PCP for re-evaluation. Tylenol (generic acetaminophen) 500 mg-2 tabs every 8 hrs. as needed for fever and aches Ibuprofen 600 mg (3-200mg tablets) every 6 hours Flonase or Nasonex 1 spray each nostril two times a day. - BROMPHENIRAMINE-PSEUDOEPH EDRINE-DM 2 MG-30 MG-10 MG/5 ML ORAL SYRUP DO NOT take any other OTC cough or cold medication while taking the prescription Bromfed DM. It is ok to take an OTC pain reliever/fever lap runner though such as advil or tylenol as needed. * Seek medical care immediately, call 911, go to ER if you have chest pain, difficulty breathing, shortness of breath, inability to swallow. Referring Provider: SELF [[id number]] Allergies As of Date: 04/13/2018 (No Known Allergies) Date Reviewed: 04/13/2018 Reviewed by: Sara Robles - Fully Assessed Reason for Visit: Cough [28] Nasal Congestion [235] Primary Visit Diagnosis:URI with cough and congestion [J06.9] Order(s):Brompheniramine- Pseudoeph-DM (BROMFED DM) 2-30-10 mg/5 mL syrupTake 5-10 ml po q6h prnDisp: 120 mLRfl: 0 Prescriptions as of 04/13/2018 Sig: BROMPHENIRAMINE-PSEUDOEPH EDRI* Take 5-10 ml po q6h prn Problem List As Of Date: 04/13/2018 (None) Other instructions from your clinician: ASSESSMENT/PLAN: 1. URI with cough and congestion - ICD9: 465.9, ICD10: J06.9 - Discussed viral etiology and rationale for treatment. Rest, increase water intake Motrin or Tylenol as needed for fever or pain. Salt water gargles, chloraseptic spray or lozenges as needed for sore throat. Warm beverages, honey. Nasal saline spray as needed Cool mist humidifier at night A cold normally lasts 7-10 days. If your symptoms are lasting longer, develop fever, or worsening by that time instead of improving then return to clinic or follow up with PCP for re-evaluation. Tylenol (generic acetaminophen) 500 mg-2 tabs every 8 hrs. as needed for fever and aches Ibuprofen 600 mg (3-200mg tablets) every 6 hours Flonase or Nasonex 1 spray each nostril two times a day. - BROMPHENIRAMINE-PSEUDOEPH EDRINE-DM 2 MG-30 MG-10 MG/5 ML ORAL SYRUP DO NOT take any other OTC cough or cold medication while taking the prescription Bromfed DM. It is ok to take an OTC pain reliever/fever lap runner though such as advil or tylenol as needed. * Seek medical care immediately, call 911, go to ER if you have chest pain, difficulty breathing, shortness of breath, inability to swallow. Prescriptions ordered this encounter Disp Refills Start End BROMPHENIRAMINE-PSEUDOEPH EDRINE-DM 2* 120 * 0 04/13/2018 Sig: Take 5-10 ml po q6h prn Encounter Status:Closed by SARA ROBLES CNP on 04/13/18 Normal [facility] PROGRESSon 04-13-2018 Protein mass conc HNO ID: [id number] Author: Sara Robles Service: (none) Author Type: Nurse Practitioner Type: Progress Notes Filed: 04/13/2018 2:38 PM Note Text: Subjective The history is provided by the patient. No language therapist was used. HPI Silvia Scott is a 32 year old female who presents today for CC of sore throat, cough and chest congestion. This started 2 days ago. She is also having post nasal drainage. The sore throat is only present with a cough. She has tried no treatment or medicaitons. Daughter is in NICU BP 110/80 Pulse 99 Temp 36.9 ?C (98.5 ?F) (Tympanic) Resp 16 Wt 73 kg (161 lb) SpO2 99% Social History Marital status: Single Spouse name: Years of education: Number of children: Social History Main Topics Smoking status: Current Some Day Smoker Packs/day: 0.00 Years: 0.00 Alcohol use: No No past medical history on file. I have confirmed and edited as necessary, the [facility] Review of Systems Constitutional: Negative for chills and fever. HENT: Positive for congestion and sore throat. Negative for ear pain and sinus pain. Respiratory: Positive for cough. Musculoskeletal: Negative for myalgias. Neurological: Negative for headaches. Objective Physical Exam Constitutional: She is well-developed, well-nourished, and in no distress. HENT: Head: Normocephalic and atraumatic. Right Ear: External ear and ear canal normal. Tympanic membrane is not erythematous, not retracted and not bulging. A middle ear effusion is present. Left Ear: Ear canal normal. Tympanic membrane is not erythematous, not retracted and not bulging. A middle ear effusion is present. Nose: Mucosal edema and rhinorrhea present. Right sinus exhibits no maxillary sinus tenderness and no frontal sinus tenderness. Left sinus exhibits no maxillary sinus tenderness and no frontal sinus tenderness. Mouth/Throat: Uvula is midline and mucous membranes are normal. Posterior oropharyngeal edema and posterior oropharyngeal erythema present. No oropharyngeal exudate or tonsillar abscesses. Pulmonary/Chest: Effort normal and breath sounds normal. She has no decreased breath sounds. She has no wheezes. She has no rhonchi. She has no rales. A dry cough was noted during this encounter. Talking in full sentences. Handling secretions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 medicines, or medicines that make you drowsy. Return to your normal activities as told by your health care provider. Ask your health care provider what activities are safe for you. Take soww-opn-enhomct and prescription medicines only as told by your health care provider. If you smoke, do not smoke without supervision. Keep all follow-up visits as told by your health care provider. This is important. Contact a health care provider if: You have nausea or vomiting that does not get better with medicine. You cannot eat or drink without vomiting. You have pain that does not get better with medicine. You are unable to pass urine. You develop a skin rash. You have a fever. You have redness around your IV site that gets worse. Get help right away if: You have difficulty breathing. You have chest pain. You have blood in your urine or stool, or you vomit blood. Summary After the procedure, it is common to have a sore throat or nausea. It is also common to feel tired. Have a responsible adult stay with you for the first 24 hours after general anesthesia. It is important to have someone help care for you until you are awake and alert. When you feel hungry, start by eating small amounts of foods that are soft and easy to digest (bland), such as toast. Gradually return to your regular diet. Drink enough fluid to keep your urine pale yellow. Return to your normal activities as told by your health care provider. Ask your health care provider what activities are safe for you. This information is not intended to replace advice given to you by your health care provider. Make sure you discuss any questions you have with your health care provider. Document Released: 06/09/2001 Document Revised: 03/06/2018 Document Reviewed: 10/17/2017 RegisterPatient Patient Education 2020 NXTM. 09/11/2023 12:42:22 Laparoscopic Ventral Hernia Repair, Care After Laparoscopic Ventral Hernia Repair, Care After This sheet gives you information about how to care for yourself after your procedure. Your health care provider may also give you more specific instructions. If you have problems or questions, contact your health care provider. What can I expect after the procedure? After the procedure, it is common to have: Pain, discomfort, or soreness. Follow these instructions at home: Incision care Follow instructions from your health care provider about how to take care of your incision. Make sure you: ?Wash your hands with soap and water before you change your bandage (dressing) or before you touch your abdomen. If soap and water are not available, use hand scrap kettle tender. ?Change your dressing as told by your health care provider. ?Leave stitches (sutures), skin glue, or adhesive strips in place. These skin closures may need to stay in place for 2 weeks or longer. If adhesive strip edges start to loosen and curl up, you may trim the loose edges. Do not remove adhesive strips completely unless your health care provider tells you to do that. Check your incision area every day for signs of infection. Check for: ?Redness, swelling, or pain. ?Fluid or blood. ?Warmth. ?Pus or a bad smell. Bathing Do not take baths, swim, or use a hot tub until your health care provider approves. Ask your healthcare provider if you can take showers. You may only be allowed to take sponge baths for bathing. Keep your bandage (dressing) dry until your health care provider says it can be removed. Activity Do not lift anything that is heavier than 10 lb (4.5 kg) until your health care provider approves. Do not drive or use heavy machinery while taking prescription pain medicine. Ask your health care provider when it is safe for you to drive or use heavy machinery. Do not drive for 24 hours if you were given a medicine to help you relax (sedative) during your procedure. Rest as told by your health care provider. You may return to your normal activities when your health care provider approves. General instructions Take mxrl-qbj-xobdrny and prescription medicines only as told by your health care provider. To prevent or treat constipation while you are taking prescription pain medicine, your health care provider may recommend that you: ?Take bono-wib-mgnujin or prescription medicines. ?Eat foods that are high in fiber, such as fresh fruits and vegetables, whole grains, and beans. ?Limit foods that are high in fat and processed sugars, such as fried and sweet foods. Drink enough fluid to keep your urine clear or pale yellow. Hold a pillow over your abdomen when you cough or sneeze. This helps with pain. Keep all follow-up visits as told by your health care provider. This is important. Contact a health care provider if: You have: ?A fever or chills. ?Redness, swelling, or pain around your incision. ?Fluid or blood coming from your incision. ?Pus or a bad smell coming from your incision. ?Pain that gets worse or does not get better with medicine. ?Nausea or vomiting. ?A cough. ?Shortness of breath. Your incision feels warm to the touch. You have not had a bowel movement in three days. You are not able to urinate. Get help right away if: You have severe pain in your abdomen. You have persistent nausea and vomiting. You have redness, warmth, or pain in your leg. You have chest pain. You have trouble breathing. Summary After this procedure, it is common to have pain, discomfort, or soreness. Follow instructions from your health care provider about how to take care of your incision. Check your incision area every day for signs of infection. Report any signs of infection to your health care provider. Keep all follow-up visits as told by your health care provider. This is important. This information is not intended to replace advice given to you by your health care provider. Make sure you discuss any questions you have with your health care provider. Document Released: 02/17/2013 Document Revised: 02/13/2018 Document Reviewed: 10/23/2016 [employer]Patient Patient Education [employer]. Follow Up Care 08/28/2023 15:20:55 With:SOTERO WILKERSON MD, Surgery Address: [address] [place] [phone] When:Within 2 Week(s) Comments:PLEASE CALL DR. WILKERSON'S OFFICE SOON FOR A FOLLOW-UP APPT IN 2 WEEKS, CALL OFFICE FOR ANY CONCERNS, GO TO EMERGENCY ROOM FOR ANY URGENT CONCERNS. [facility] 06-27-2024 Note Discharge Instructions Thank you for allowing [facility] to assist you with your healthcare needs. The following is importantdischarge information regarding your hospital visit. Your Care Team RM CABRERA DO DR. WILKERSON Your Diagnosis Acute post-operative pain What to do next Scheduled Follow-Up Appointments Appointment Type When With Where Contact Information StatusGS OV Post Op 09/25/2023 01:30 PM EDT SOTERO WILKERSON MD [facility] Confirmed PC OV 10/24/2023 11:30 AM EDT RM CABRERA DO [address] [phone] Confirmed Follow Up Appointments Follow Up with SOTERO WILKERSON MD, Surgery When:In 2 weeks Where:[address] [place] [phone] Additional Information: PLEASE CALL DR. WILKERSON'S OFFICE SOON FOR A FOLLOW-UP APPT IN 2 WEEKS, CALL OFFICE FOR ANY CONCERNS, GO TO EMERGENCY ROOM FOR ANY URGENT CONCERNS. The Following Activity and Diet Have Been Ordered for You Discharge Activity - Ordered -- Sexual Hercules Restricted No bending, twisting, crawling or squatt, No shower or tub bath for 2 days; no driving for 5 days, no lifting >15 lbs, 09/11/23 11:54:00 EDT Discharge Diet - Ordered -- Follow the post-operative/post-procedure diet instructions provided by your physician's office.,09/11/23 11:54:00 EDT The Following Equipment Has Been Ordered for You Discharge Home Equipment Discharge Wound Care - Ordered -- Dressing Type: Dry sterile drsg, Remove dressing in two (2) days. Leave steristrips on until they fall off, 09/11/23 11:54:00 EDT Allergies NKA Medications Please ask your primary doctor or pharmacist before taking any other medication not listed, including over the counter drugs, herbal medications, vitamins and or supplements as they may interact withyour home medications. What How Much When Why Instructions Last Dose New acetaminophen-hydrocodone ([place] 325- 5 mg oral tablet) 1 tab(s) by mouth Every 4 hours as needed for Pain, scale 1-6 Acute post-operative pain Duration: 5 Days Pickup at [facility] [address] Unchanged bisacodyl (bisacodyl 5 mg oral delayed release tablet) 2 tab(s) by mouth Once a day as needed for as needed for constipation Duration: 14 Days Unchanged docusate (docusate calcium 240 mg oral capsule) 1 cap by mouth Every day Duration: 90 Days with plenty of water Unchanged methocarbamol (methocarbamol 750 mg oral tablet) 2 tab(s) by mouth Three (3) times a day as needed for Muscle spasm Duration: [address], operate heavy machinery, or drink alcohol while on this medication. Unchanged wheat dextrin (wheat dextrin oral powder for reconstitution) 4 gram(s) by mouth Three (3) times a day as needed for for constipation Duration: 30 Days dissolve in 4 to 8 oz of beverage or soft food- hot or cold Pharmacy Information [facility]: [address] [place], [place] [phone] Please take this list to your next doctor s visit. Bring all medications you take, including over the counter medications, herbals and other supplements with you to your doctor s visit. Patients and families are reminded to discard old lists and to update any records with all medication providers or retail pharmacies. Medication Leaflets acetaminophen and hydrocodone (a SEET a MIN oh fen and lyn LYONS done) Verdro[employer]et What is the most important information I should know about acetaminophen and hydrocodone? MISUSE OF OPIOID MEDICINE CAN CAUSE ADDICTION, OVERDOSE, OR . Keep the medication in a place where others cannot get to it. Taking opioid medicine during may cause life-threatening withdrawal symptoms in the . Fatal side effects can occur if you use opioid medicine with alcohol, or with other drugs that cause drowsiness or slow your breathing. Stop taking this medicine and call your doctor right away if you have skin redness or a rash that spreads and causes blistering and peeling. What is acetaminophen and hydrocodone? Acetaminophen and hydrocodone is a combination medicine used to relieve moderate to severe pain. Acetaminophen and hydrocodone contains an opioid medicine, and may be habit-forming. Acetaminophen and hydrocodone may also be used for purposes not listed in this medication guide. What should I discuss with my healthcare provider before taking acetaminophen and hydrocodone? You should not use this medicine if you are allergic to acetaminophen or hydrocodone, or if you have: severe asthma or breathing problems; or a blockage in your stomach or intestines. Tell your doctor if you have ever had: breathing problems, sleep apnea (breathing stops during sleep); liver disease; a drug or alcohol addiction; kidney disease; a head injury or seizures; urination problems; or problems with your thyroid, pancreas, or gallbladder. If you use opioid medicine while you are , your baby could become dependent on the drug. This can cause life-threatening withdrawal symptoms in the baby after it is born. Babies born dependent on opioids may need medical treatment for several weeks. Ask a doctor before using opioid medicine if you are . Tell your doctor if you notice severe drowsiness or slow breathing in the nursing baby. How should I take acetaminophen and hydrocodone? Follow all directions on your prescription label. Never take this medicine in larger amounts, or for longer than prescribed. An overdose can damage your liver or cause . Tell your doctor if you feel an increased urge to use more of this medicine. Never share this medicine with another person, especially someone with a history of drug abuse or addiction. MISUSE CAN CAUSE ADDICTION, OVERDOSE, OR . Keep the medicine in a place where others cannot get to it. Selling or giving away this medicine is against the law. Measure liquid medicine carefully. Use the dosing syringe provided, or use a medicine dose-measuring device (not a kitchen spoon). If you need surgery or medical tests, tell the doctor ahead of time that you are using this medicine. You should not stop using this medicine suddenly. Follow your doctor's instructions about tapering your dose. Store at room temperature away from moisture and heat. Keep track of your medicine. You should be aware if anyone is using it improperly or without a prescription. Do not keep leftover opioid medication. Just one dose can cause in someone using this medicine accidentally or improperly. Ask your pharmacist where to locate a drug take-back disposal program.If there is no take-back program, flush the unused medicine down the toilet. What happens if I miss a dose? Since this medicine is used for pain, you are not likely to miss a dose. Skip any missed dose if itis almost time for your next dose. Do not use two doses at one time. What happens if I overdose? Seek emergency medical attention or call the Poison Help line at . An overdose of this medicine can be fatal, especially in a child or other person using the medicine without a prescription. Overdose symptoms may include nausea, vomiting, sweating, severe drowsiness, pinpoint pupils, slow breathing, or no breathing. Your doctor may recommend you get naloxone (a medicine to reverse an opioid overdose) and keep it with you at all times. A person caring for you can give the naloxone if you stop breathing or don't wake up. Your caregiver must still get emergency medical help and may need to perform CPR (cardiopulmonary resuscitation) on you while waiting for help to arrive. Anyone can buy naloxone from a pharmacy or local health department. Make sure any person caring foryou knows where you keep naloxone and how to use it. What should I avoid while taking acetaminophen and hydrocodone? Avoid driving or operating machinery until you know how this medicine will affect you. Dizziness ordrowsiness can cause falls, accidents, or severe injuries. Do not drink alcohol. Dangerous side effects or could occur. Ask a doctor or pharmacist before using any other medicine that may contain acetaminophen (sometimes abbreviated as APAP). Taking certain medications together can lead to a fatal overdose. What are the possible side effects of acetaminophen and hydrocodone? Get emergency medical help if you have signs of an allergic reaction: hives; difficulty breathing; swelling of your face, lips, tongue, or throat. Opioid medicine can slow or stop your breathing, and may occur. A person caring for you should give naloxone and/or seek emergency medical attention if you have slow breathing with long pauses,blue colored lips, or if you are hard to wake up. In rare cases, acetaminophen may cause a severe skin reaction that can be fatal. This could occur even if you have taken acetaminophen in the past and had no reaction. Stop taking this medicine and call your doctor right away if you have skin redness or a rash that spreads and causes blistering andpeeling. Call your doctor at once if you have: noisy breathing, sighing, shallow breathing, breathing that stops; a light-headed feeling, like you might pass out; liver problems--nausea, upper stomach pain, tiredness, loss of appetite, dark urine, rito-colored stools, jaundice (yellowing of the skin or eyes); low cortisol levels-- nausea, vomiting, loss of appetite, dizziness, worsening tiredness or weakness; o high levels of serotonin in the body--agitation, hallucinations, fever, sweating, shivering, fast heart rate, muscle stiffness, twitching, loss of coordination, nausea, vomiting, diarrhea. Serious breathing problems may be more likely in older adults and in those who are debilitated or have wasting syndrome or chronic breathing disorders. Common side effects include: dizziness, drowsiness, feeling tired; nausea, vomiting, stomach pain; constipation; or headache. This is not a complete list of side effects and others may occur. Call your doctor for medical advice about side effects. You may report side effects to FDA at 2-383-FQX-9761. What other drugs will affect acetaminophen and hydrocodone? You may have breathing problems or withdrawal symptoms if you start or stop taking certain other medicines. Tell your doctor if you also use an antibiotic, antifungal medication, heart or blood pressure medication, seizure medication, or medicine to treat HIV or hepatitis C. Opioid medication can interact with many other drugs and cause dangerous side effects or . Be sure your doctor knows if you also use: cold or allergy medicines, bronchodilator asthma/COPD medication, or a diuretic ('water pill'); medicines for motion sickness, irritable bowel syndrome, or overactive bladder; other opioids--opioid pain medicine or prescription cough medicine; a sedative like Valium--diazepam, alprazolam, lorazepam, Xanax, Klonopin, Versed, and others; drugs that make you sleepy or slow your breathing--a sleeping pill, muscle relaxer, medicine to treat mood disorders or mental illness; drugs that affect serotonin levels in your body--a stimulant, or medicine for depression, Parkinson's disease, migraine headaches, serious infections, or nausea and vomiting. This list is not complete. Other drugs may affect acetaminophen and hydrocodone, including prescription and [id number] medicines, vitamins, and herbal products. Not all possible interactions are listed here. Where can I get more information? Your doctor or pharmacist can provide more information about acetaminophen and hydrocodone. Remember, keep this and all other medicines out of the reach of children, never share your medicines with others, and use this medication only for the indication prescribed. Every effort has been made to ensure that the information provided by [employer]. [employer]') is accurate, up-to-date, and complete, but no guarantee is made to that effect. Drug information contained herein may be time sensitive. [facility] information has been compiled for use by healthcare practitioners and consumers in the [place] and therefore [facility] does not warrant that uses outside of the [place] are appropriate, unless specifically indicated otherwise. [employer] drug information does not endorse drugs, diagnose patients or recommend therapy. [employer] drug information isan informational resource designed to assist licensed healthcare practitioners in caring for their p atients and/or to serve consumers viewing this service as a supplement to, and not a substitute for, the expertise, skill, knowledge and judgment of healthcare practitioners. The absence of a warningfor a given drug or drug combination in no way should be construed to indicate that the drug or drug combination is safe, effective or appropriate for any given patient. [facility] does not assume any responsibility for any aspect of healthcare administered with the aid of information [employer] provides. The information contained herein is not intended to cover all possible uses, directions, precautions, warnings, drug interactions, allergic reactions, or adverse effects. If you have questions about the drugs you are taking, check with your doctor, nurse or pharmacist. Copyright 3871-7267 [employer]. Version: 19.02. Revision Date: 06/24/2023. bupivacaine liposome (kassidye ROBER a roach ANN MARIE william some) Exparel What is the most important information I should know about bupivacaine liposome? You may still feel numb or be unable to move the numbed area for up to 5 days after you are treatedwith bupivacaine liposome. What is bupivacaine liposome? Bupivacaine is an anesthetic (numbing medicine) that blocks nerve impulses in your body. Bupivacaine liposome is used as a local (in only one area) anesthetic to numb an area of your body for a minor surgery such as bunion removal or hemorrhoid surgery. Bupivacine liposome is also used as a nerve block after surgery on your shoulder or upper arm, to provide pain relief to the area. Bupivacaine may also be used for purposes not listed in this medication guide. What should I discuss with my healthcare provider before receiving bupivacaine liposome? You should not be treated with bupivacaine if you are allergic to it. Tell your doctor if you have ever had: an allergic reaction to any type of numbing medicine; liver disease; kidney disease; heart disease; a heart rhythm disorder; or seizures. It is not known whether this medicine will harm an unborn baby. Tell your doctor if you are . It may not be safe to breast-feed a baby while you are using this medicine. Ask your doctor about any risks. How is bupivacaine liposome given? Bupivacaine is given as an injection placed into an area near your surgical incision. You will receive this injection in a hospital or surgical setting. Bupivacaine liposome can have long-lasting or delayed effects. For at least 4 days (96 hours) afteryour surgery, tell any doctor or dentist who treats you that you recently received a bupivacaine liposome injection. Call your doctor if you have joint pain or stiffness, or weakness in any part of your body that occurs after your surgery, even months later. What happens if I miss a dose? Since bupivacaine liposome is used as a single dose, it does not have a daily dosing schedule. What happens if I overdose? Since this medication is given by a healthcare professional in a medical setting, an overdose is unlikely to occur. What should I avoid after receiving bupivacaine liposome? For at least 4 days (96 hours) after surgery, avoid using any pain or numbing medicines that contain lidocaine. This includes skin patches, sprays, creams, ointments, or gels applied to the skin. Follow your doctor's instructions. What are the possible side effects of bupivacaine liposome? Get emergency medical help if you have signs of an allergic reaction: hives, red rash, itching; sneezing, difficulty breathing; severe dizziness, vomiting; swelling of your face, lips, tongue, or throat. You will be watched closely after receiving bupivacaine liposome, to make sure you do not have a reaction to the medicine. Tell your caregivers at once if you have any of these signs of a serious side effect: ringing in your ears; drowsiness, feeling restless or anxious; feeling like you might pass out; speech or vision problems, a metallic taste in your mouth; numbness or tingling around your mouth; fast or slow heart rate, feeling short of breath, feeling unusually hot or cold; tremors, twitching, mood changes; ongoing numbness, weakness, or loss of movement where the medicine was injected; or joint pain or stiffness, or weakness in any part of your body for months after your surgery. You may still feel numb or be unable to move the numbed area for up to 5 days after you are treatedwith bupivacaine liposome. Common side effects include: nausea, vomiting; constipation; or fever. This is not a complete list of side effects and others may occur. Call your doctor for medical advice about side effects. You may report side effects to FDA at 5-986-BDK-3007. What other drugs will affect bupivacaine liposome? Other drugs may affect bupivacaine liposome, including prescription and eihd-[id number] medicines,vitamins, and herbal products. Tell your doctor about all your current medicines and any medicine you start or stop using. Where can I get more information? Your doctor or pharmacist can provide more information about bupivacaine liposome. Remember, keep this and all other medicines out of the reach of children, never share your medicines with others, and use this medication only for the indication prescribed. Every effort has been made to ensure that the information provided by [employer]. [employer]') is accurate, up-to-date, and complete, but no guarantee is made to that effect. Drug information contained herein may be time sensitive. [facility] information has been compiled for use by healthcare practitioners and consumers in the [place] and therefore [facility] does not warrant that uses outside of the [place] are appropriate, unless specifically indicated otherwise. [facility] drug information does not endorse drugs, diagnose patients or recommend therapy. [facility]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 09/11/2023 7:51 EDT Temperature Temporal Artery 36.4 DegC Apical Heart Rate 70 bpm Respiratory Rate 14 br/min Systolic Blood Pressure Non-Invasive 115 mmHg Diastolic Blood Pressure Non-Invasive 74 mmHg Vital Signs (last 24 hrs) Last Charted Temp Ikbnpnsf79.4 DegC (SEP 10 07:51) Heart Rate Jhtjdtssd11 bpm (SEP 10 09:30) SBP94 mmHg (SEP 10 09:30) DBP66 mmHg (SEP 10 09:30) BMI33.96 (SEP 10 07:47) Measurements from flowsheet : Measurements 09/11/2023 7:47 EDT Height 153 cm Height in inches 60.2 inch(es) Admission Weight 79.5 kg Weight Lbs 174.9 lb [place] Body Weight 46.04 kg BSA Admission 1.77 Body Mass Index 33.96 kg/m2 Pain assessment: Pain Assessment 09/11/2023 7:51 EDT Primary Pain Intensity 0 Pain Scale Type 0-10 Pain scale . General: Alert and oriented. Airway: Normal temporomandibular joint mobility. Mallampati classification: II (soft palate, fauces, uvula visible). Head: Normocephalic. Dentition Evaluation: Own teeth, poor. Neck: Supple. Respiratory: Lungs are clear to auscultation. Cardiovascular: Normal rate. Heart Sounds: Normal. Gastrointestinal: Soft. Musculoskeletal Normal range of motion. Integumentary: Intact. Neurologic: Alert, Oriented. Review / Management Results review: No qualifying data available , Lab results 09/11/2023 9:38 EDT cefOXitin 2 gram(s) gram(s) Sodium Chloride 0.9% 100 mL mL 09/11/2023 9:33 EDT SN - CTm - Surgery Start 09/11/2023 9:29 09/11/2023 9:32 EDT lidocaine 80 mg mg 09/11/2023 9:30 EDT Heart Rate Monitored 93 bpm bpm Respiratory Rate - Anes 10 br/min br/min Systolic Blood Pressure Non-Invasive 94 mmHg mmHg Diastolic Blood Pressure Non-Invasive 66 mmHg mmHg Oxygen Saturation 100 % % acetaminophen Begin Bag 100 mL mg Set Rate Anes 10 br/min br/min 09/11/2023 9:27 EDT dexAMETHasone 4 mg mg ondansetron 4 mg mg 09/11/2023 9:25 EDT Heart Rate Monitored 89 bpm bpm Respiratory Rate - Anes 12 br/min br/min Systolic Blood Pressure Non-Invasive 85 mmHg mmHg Diastolic Blood Pressure Non-Invasive 55 mmHg mmHg Oxygen Saturation 100 % % Set Rate Anes 12 br/min br/min 09/11/2023 9:20 EDT Heart Rate Monitored 88 bpm bpm Respiratory Rate - Anes 12 br/min br/min Systolic Blood Pressure Non-Invasive 96 mmHg mmHg Diastolic Blood Pressure Non-Invasive 67 mmHg mmHg Oxygen Saturation 100 % % Set Rate Anes 12 br/min br/min 09/11/2023 9:15 EDT Heart Rate Monitored 78 bpm bpm Respiratory Rate - Anes 8 br/min br/min Systolic Blood Pressure Non-Invasive 89 mmHg mmHg Diastolic Blood Pressure Non-Invasive 60 mmHg mmHg Oxygen Saturation 84 % % fentaNYL 100 mcg mcg lidocaine 4 mg mg propofol 150 mg mg rocuronium 40 mg mg Set Rate Anes 12 br/min br/min 09/11/2023 9:10 EDT Respiratory Rate - Anes 0 br/min br/min Systolic Blood Pressure Non-Invasive 107 mmHg mmHg Diastolic Blood Pressure Non-Invasive 69 mmHg mmHg SN - CTm - Anesthesia Start Time Anesthesia Start midazolam 2 mg mg 09/11/2023 8:54 EDT SN - CAt - Case Attendee SN - CAt - Case Attendee SN - CAt - 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 09/11/2023 8:44 EDT SN - Proc - Anesthesia Type General SN - Proc - Actual Procedure ROBOTIC ASSISTED LAPAROSCOPIC REPAIR OF MULTIPLE VENTRAL HERNIAS 09/11/2023 8:44 EDT SN - SP - Prep Agents Chloraprep SN - SP - HR - Method N/A 09/11/2023 8:43 EDT SN - PP - Body Position Supine Standard Intra-op 09/11/2023 8:43 EDT SN - PTCare - Thermals Forced Air Warming Device Upper Body SN - PTCare - Anti-thromboembolism [place] Sequential Compression Device (SCD) 09/11/2023 8:43 EDT SN - Assess - LOC Alert SN - Assess - Orientation Oriented X 3 SN - Assess - Post-op Skin Integrity Intact/Dry 09/11/2023 8:42 EDT SN - WA - Route of Administration Local SN - WA - Route of Administration Local SN - WA - By (Single) SN - WA - By (Single) SN - WA - By (Single) SN - WA - By (Single) 09/11/2023 8:40 EDT SN - GCD - Post-operative Diagnosis VENTRAL HERNIA SN - GCD - Case Level Level 6 09/11/2023 8:40 EDT SN - CAt - Case Attendee SN - CAt - Case Attendee SN - CAt - Case Attendee SN - CAt - Case Attendee SN - CAt - Case Attendee SN - CAt - Case Attendee SN - CAt - Case Attendee SN - CAt - Case Attendee SN - CAt - Role Performed Primary Surgeon SN - CAt - Role Performed Linoleum Tile Layer 1 SN - CAt - Role Performed Scrub 1 SN - CAt - Role Performed 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 1 09/11/2023 8:17 EDT gabapentin 300 mg mg Lactated Ringers Injection Begin Bag 1,000 mL mL 09/11/2023 8:16 EDT ibuprofen 800 mg mg 09/11/2023 8:01 EDT Test Urine Negative test (u) int test (u) int QC PRGUN Negative QC PRGUP Positive 09/11/2023 8:00 EDT Continuous IV Infusions lr Antecubital Left 09/11/2023 20 gauge Peripheral IV Activity: Insert new site Peripheral IV Dressing Condition: Clean, Dry, Intact Peripheral IV Dressing Activity: Applied, Transparent dressing Peripheral IV Line Status/Patency: Flushes easily Peripheral IV Line Care: Secured with tape Peripheral IV Site Condition: No complications Peripheral IV Equipment: Extension set, PRN Adaptor Peripheral IV Number of Attempts: 1 09/11/2023 7:51 EDT Temperature Temporal Artery 36.4 DegC Apical Heart Rate 70 bpm Respiratory Rate 14 br/min Systolic Blood Pressure Non-Invasive 115 mmHg Diastolic Blood Pressure Non-Invasive 74 mmHg Primary Pain Intensity 0 Pain Scale Type 0-10 Pain scale Heart Rhythm Regular Oxygen Therapy Room air Oxygen Saturation 100 % Abdomen Description Non-distended, Soft, Rounded Abdomen Palpation Non-Tender Bowel Sounds All Quadrants Present Urinary Elimination Voiding, no difficulties Skin Description Normal for ethnicity Skin Integrity Intact IV Present Present Extremity Movement Equal Characteristics of Speech Clear Level of Consciousness Alert Strength All Extremities Strong Sensation All Extremities Intact Affect/Behavior Appropriate, Calm, Cooperative Orientation Oriented x 4 Allergies No Anesthesia Extension Set Applied Yes Manager Of Business Operations On Yes Consent Form Signed Yes Patient Dressed In Hospital gown CHG Preoperative Wash/Wipe Night before procedure, Day of procedure, Site specific wipe Preop Nasal Swab Povidone-Iodine CHG Skin Prep Completed for Eligible Surgery History & Physical Update On Chart Yes History & Physical On Chart Yes Obstructive Sleep Apnea Assess Completed No Orientation Assessment Oriented x 4 Belongings At Bedside Cell phone, Shoes, Shorts, T-shirt, Undergarments Positioning Repositions self Sequential Compression Device bilateral knee high applied/on NPO Status Maintained, More than 8 hours Standard Safety ID band on, Call device within reach, Bed in low position, Wheels locked, Visitor at bedside, Safety level maintained Allergy Band on and Verified No Patient ID Band on and Verified Yes Implants Verified No Pacemaker/AICD Verified No Site Verified by Patient/Family Yes Anesthesia Consent Signed Yes Blood Consent Signed Yes Last Fluid Intake 09/10/2023 23:30 Last Food Intake 09/10/2023 23:30 Last Void 09/11/2023 7:40 09/11/2023 7:47 EDT Designated Person #1 We May Share PHI Prosper Tee [phone] Designated Person #1 Relationship Spouse Privacy Restrictions Requested None Height 153 cm Height in inches 60.2 inch(es) Admission Weight 79.5 kg Weight Lbs 174.9 lb [place] Body Weight 46.04 kg BSA Admission 1.77 Body Mass Index 33.96 kg/m2 Patient Type Outpatient Status No, per patient Do You Wish/Go to Sleep/Never Wake Up No Thoughts of Harming Others - History No Thoughts of Suicide - History No Hospital Clergy to Visit Patient Verbalizes No Spiritual Needs Sensory Deficits None Advanced Directives No - refuses information Infectious Disease Symptoms Patient states no symptoms Infectious Disease Recent Exposure No Alcohol and Drug Use No Employee of Institutional Living No Health Care Employee No History of Exposure to TB No History of Positive Chest X-Ray for TB No History of Positive TB Skin Test No Homeless No Known Immunosuppression No Recent Immigrant No Resident of Institutional Living No Bloody Sputum No Fatigue No Fever No Loss of Appetite No Night Sweats No Persistent Cough > 3 Weeks No Weight Loss No Barriers to Learning None evident Teaching Method Explanation, Printed materials Preferred Spoken Language Irish Preferred Written Language Irish Teaching Evaluation No further teaching needed Safety Brochure Information Reviewed Yes Claribel Tijerina Video Viewed No Information Given by Patient Patient's Current Physicians Dr. Rm Cabrera, PCP Discharge To, Anticipated Home with family care Prev Test Positive/Diagnosis w/COVID-19 No Current Quarantine/Isolated any Illness No Any Contact with Sick Animals/Birds No Traveled Anywhere in Last 30 Days No Lost Weight Unintentionally Recently No Eat Poorly Due to Decreased Appetite No Total MST Score 0 No Personal Devices, Patient Valuables None Admission Note-Nursing Patient History (AO) . Assessment and Plan [place] [employer] Anesthesi[employer] (ASA) physical status classification: Class II. Anesthetic Preoperative Plan Premedication: intravenous. Anesthetic technique: General. Induction: intravenously. Maintenance airway: Oral endotracheal tube. Postoperative pain management: Per surgeon. Risks discussed: nausea, vomiting, sore throat. Informed consent: signed by patient. Digitally Signed by ASHWINI PEARL on 09/11/2023 09:42 AM [facility]06-05-2024 Note ORIGINAL EXAMINATION: CT OF THE ABDOMEN AND PELVIS WITH CONTRAST 08/20/2023 12:01 pm TECHNIQUE: CT of the abdomen and pelvis was performed with the administration of intravenous contrast. Multiplanar reformatted images are provided for review. Automated exposure control, iterative reconstruction, and/or weight based adjustment of the mA/kV was utilized to reduce the radiation dose to as low as reasonably achievable. COMPARISON: Ultrasound abdomen 06/30/2023, CT abdomen and pelvis 11/02/2014 HISTORY: ORDERING SYSTEM PROVIDED HISTORY: Reason for Exam: periumbilical hernia FINDINGS: No acute osseous abnormality. There are two moderate size fat containing paraumbilical hernias which are above the level of the umbilicus. There is a fat and small bowel containing paraumbilical hernia best seen on images 60 through 67 of series 2. There is an additional smaller fat containing umbilical hernia inferior to the umbilicus, best seen on image 69 of series 2 and image 67 of series 602. There is a large predominantly fat density lesion between the left external and internal oblique musculature, measuring up to 8.9 x 2.4 x 9.9 cm (AP by medial-lateral by craniocaudal dimensions). There are areas increased density versus enhancement within the fat of this lesion, and a few small vessels are seen within the lateral and posterior aspects of the lesion. The internal and external obliques appear intact. There is no evidence of muscular invasion. There is no soft tissue nodularity. The included lung bases are clear. The liver, gallbladder, spleen, pancreas and both adrenal glands are unremarkable. Symmetric nephrograms. No hydronephrosis or nephrolithiasis. No focal bladder wall thickening. The uterus is unremarkable. There is a peripherally enhancing left ovarian cystic lesion which measures 1.9 x 1.3 x 1.7 cm. The lesion appears somewhat crenulated, and may represent a corpus luteal cyst. No GI dilatation or inflammatory change. There is a small bowel anastomosis in the right lower quadrant. The appendix is surgically absent. The aorta is normal. No lymphadenopathy. No free air or free fluid. IMPRESSION: Multiple fat containing paraumbilical hernias, the largest of which is at the level of the umbilicus and also contains a small portion of small bowel. Incidental 8.9 cm lesion between the left external and internal oblique muscles. This is predominantly fatty however there appear to be areas of internal enhancement/vascularity. Overall appearance is atypical for a simple lipoma and the possibility of liposarcoma is raised. Further evaluation with MRI with IV contrast is recommended. Consider orthopedics consultation for biopsy considerations. 1.9 cm left ovarian cystic lesion is favored to represent a corpus luteal cyst or possibly hemorrhagic cyst. If symptomatic consider pelvis ultrasound. I have personally reviewed the images of this examination and agree with the resident's findings and interpretation. Interpreted by: Keven Fitzpatrick MD Preliminary Report By: Maryanne Holliday Electronically signed By Keven Fitzpatrick MD Dictated Date: 08/20/2023 1:26:42 PM Prelim Date: 08/20/2023 2:39:57 PM Sign Date: 08/20/2023 2:39:57 PM Ordering Provider: [facility]04-15-2024 Note ORIGINAL EXAMINATION: RIGHT UPPER QUADRANT ULTRASOUND 06/30/2023 7:50 am COMPARISON: None. HISTORY: ORDERING SYSTEM PROVIDED HISTORY: Reason for Exam: right abdominal mass, history of bowel resection FINDINGS: Directed real-time imaging of the right periumbilical region performed, at the site of reported hardness. There is a 2.7 x 2 cm anterior abdominal wall defect with a hernia measuring 3.3 x 3.1 x 1.2 cm. Hernia contains fat and bowel loops and is reducible when the patient is recumbent.. IMPRESSION: Right periumbilical hernia containing fat and bowel loops. Interpreted by: Kilo Lisa DO Preliminary Report By: Kilo Lisa DO Electronically signed By Kilo Maria L, DO Dictated Date: 06/30/2023 9:08:28 AM Prelim Date: 06/30/2023 9:11:09 AM Sign Date: 06/30/2023 9:11:09 AM [facility] No data available for this section [facility] Evaluation + Plan note Future Appointments Appointment Date:07/18/2023 11:30:00 AM Scheduled Provider:RM CABRERA DO Location:[facility] Appointment Type:PC OV Future Scheduled Tests Radiology* US Soft Tissue Mass of Abd/Mid Back 06/06/23 [facility] Evaluation + Plan note Future Appointments Appointment Date:07/01/2023 02:00:00 PM Scheduled Provider: Location:[facility] Appointment Type:PT [facility] Appointment Date:07/03/2023 02:00:00 PM Scheduled Provider: Location:[facility] Appointment Type:PT [facility] Appointment Date:07/08/2023 02:00:00 PM Scheduled Provider: Location:[facility] Appointment Type:PT Treatment [facility] Appointment Date:07/10/2023 02:00:00 PM Scheduled Provider: Location:[facility] Appointment Type:PT [facility] Appointment Date:07/15/2023 02:00:00 PM Scheduled Provider: Location:[facility] Appointment Type:PT [facility] Appointment Date:07/18/2023 11:30:00 AM Scheduled Provider:RM CABRERA DO Location:[facility] Appointment Type:PC OV [facility] Evaluation + Plan note Future Appointments Appointment Date:09/05/2023 09:30:00 AM Scheduled Provider:RM CABRERA DO Location:[facility] Appointment Type:PC OV Future Scheduled Tests Radiology* MRI Spine Lumbar w/o Contrast 07/18/23 [facility] Evaluation + Plan note Future Appointments Appointment Date:08/07/2023 11:30:00 AM Scheduled Provider: Location:[facility] Appointment Type:CT Abdomen and Pelvis w/ Contrast Appointment Date:08/14/2023 01:10:00 PM Scheduled Provider:SOTERO WILKERSON MD Location:[facility] Appointment Type:GS OV Check after Test Appointment Date:09/05/2023 09:30:00 AM Scheduled Provider:RM CABRERA DO Location:[facility] Appointment Type:PC OV Future Scheduled Tests Radiology* CT Abdomen and Pelvis w/ contrast 08/07/23 [facility] Evaluation + Plan note Future Appointments Appointment Date:08/28/2023 02:00:00 PM Scheduled Provider:SOTERO WILKERSON MD Location:[facility] Appointment Type:GS OV Check after Test Appointment Date:09/05/2023 09:30:00 AM Scheduled Provider:RM CABRERA DO Location:[facility] Appointment Type:PC OV [facility] Evaluation + Plan note Future Appointments Appointment Date:09/05/2023 09:30:00 AM Scheduled Provider:RM CABRERA DO Location:[facility] Appointment Type:PC OV Appointment Date:09/25/2023 01:30:00 PM Scheduled Provider:SOTERO WILKERSON MD Location:[facility] Appointment Type:GS OV Post Op [facility] Evaluation + Plan note Future Appointments Appointment Date:09/25/2023 01:30:00 PM Scheduled Provider:SOTERO WILKERSON MD Location:[facility] Appointment Type:GS OV Post Op Appointment Date:10/24/2023 11:30:00 AM Scheduled Provider:RM CABRERA DO Location:[facility] Appointment Type:PC OV [facility] Evaluation + Plan note Future Appointments Appointment Date:10/24/2023 11:30:00 AM Scheduled Provider:RM CABRERA DO Location:[facility] Appointment Type:PC OV Appointment Date:11/04/2023 06:45:00 AM Scheduled Provider: Location:[facility] Appointment Type:MRV Abdomen Future Scheduled Tests Radiology* MRV Abdomen 11/04/23 [facility] Evaluation + Plan note Future Appointments Appointment Date:11/04/2023 06:45:00 AM Scheduled Provider: Location:[facility] Appointment Type:MRV Abdomen Appointment Date:12/19/2023 11:30:00 AM Scheduled Provider:RM CABRERA DO Location:[facility] Appointment Type:PC OV Diagnostic Tests Pending * Estrogens Fractionated, S 10/24/23 Future Scheduled Tests Radiology* MRV Abdomen 11/04/23 [facility] Evaluation + Plan note Future Appointments Appointment Date:12/26/2023 01:00:00 PM Scheduled Provider:RM CABRERA DO Location:[facility] Appointment Type:PC OV Appointment Date:12/29/2023 01:00:00 PM Scheduled Provider:SOTERO WILKERSON MD Location:[facility] Appointment Type:GS OV Check after Test Future Scheduled Tests Radiology* MRI Chest W/ + W/O Contrast 12/19/23 [facility] evaluation + Plan note Future Appointments Appointment Date:01/30/2024 09:30:00 AM Scheduled Provider:RM CABRERA DO Location:[facility] Appointment Type:PC OV Future Scheduled Tests Radiology* MRI Chest W/ + W/O Contrast 12/19/23 [facility] Evaluation + Plan note Future Appointments Appointment Date:12/07/2024 10:00:00 AM Scheduled Provider:RM CABRERA DO Location:[facility] Appointment Type:PC OV Future Scheduled Tests Radiology* MA Mammo Screening Bilateral w/ Luis Angel 06/15/24 * MRI Chest W/ + W/O Contrast 12/19/23 [facility] evaluation + Plan note Future Appointments Appointment Date:12/07/2024 10:00:00 AM Scheduled Provider:RM CABRERA DO Location:[facility] Appointment Type:PC OV Future Scheduled Tests Radiology* MRI Chest W/ + W/O Contrast 12/19/23 [facility] Evaluation + Plan note Future Appointments Appointment Date:08/25/2024 01:00:00 PM Scheduled Provider:RM CABRERA DO Location:[facility] Appointment Type:PC Acute Appointment Date:12/07/2024 10:00:00 AM Scheduled Provider:RM CABRERA DO Location:[facility] Appointment Type:PC OV Diagnostic Tests Pending * Gliadin Antibody 08/23/24 * t-Transglutaminase (tTG) IgG 08/23/24 Future Scheduled Tests Radiology* MRI Chest W/ + W/O Contrast 12/19/23 [facility] Evaluation + Plan note Future Appointments Appointment Date:09/14/2024 12:30:00 PM Scheduled Provider: Location:[facility] Appointment Type:NM Hepatobiliary Duct System Imaging Appointment Date:09/22/2024 11:00:00 AM Scheduled Provider:RM CABRERA DO Location:[facility] Appointment Type:PC OV Appointment Date:10/08/2024 11:30:00 AM Scheduled Provider:TATIANNA ROSE MD Location:[facility] Appointment Type:PM [employer] Appointment Date:12/07/2024 10:00:00 AM Scheduled Provider:RM CABRERA DO Location:[facility] Appointment Type:PC OV Future Scheduled Tests Radiology* NM Hepatobiliary Duct System Imaging 09/14/24 * MRI Chest W/ + W/O Contrast 12/19/23 [facility] Evaluation + Plan note Future Appointments Appointment Date:09/14/2024 12:30:00 PM Scheduled Provider: Location:[facility] Appointment Type:NM Hepatobiliary Duct System Imaging Appointment Date:09/22/2024 11:00:00 AM Scheduled Provider:RM CABRERA DO Location:[facility] Appointment Type:PC OV Appointment Date:10/08/2024 11:30:00 AM Scheduled Provider:TATIANNA ROSE MD Location:[facility] Appointment Type:PM [employer] Appointment Date:12/07/2024 10:00:00 AM Scheduled Provider:RM CABRERA DO Location:[facility] Appointment Type:PC OV Diagnostic Tests Pending * Ova + Parasite Exam 08/27/24 Future Scheduled Tests Radiology* NM Hepatobiliary Duct System Imaging 09/14/24 * MRI Chest W/ + W/O Contrast 12/19/23 [facility] Evaluation note* Diagnosis Onset Date Resolution Status Small bowel perforation acut e [facility] Work Phone: evaluation noteNo assessment information available [facility] Work Phone: evaluation note* Diagnosis Soft tissue mass- Primary Disorders of soft tissue, unspecified documented in this encounter [facility] note* Diagnosis Abdominal wall mass Abdominal or pelvic swelling, mass or lump, unspecified site documented in this encounter [facility]* Diagnosis 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 Other specified soft tissue disorders documented in this encounter [facility] Discharge instructions No data available for this section [facility] Progress note No data available for this section [facility] Reason for referral (narrative)No reason for referral [facility]: Retd[facility] for visit Narrative* Auth/Cert (Routine) Specialty Diagnoses / Procedures Referred By Loren t Referred To Contact Diagnoses Other specified soft tissue disorders Left abdominal wall mass Procedures [place] EXC TUMOR SOFT TISSUE ABDOMINAL WALL SUBQ <3CM RESECT LEFT ABDOMINAL WALL MASS Andre Allison MD [address] [place] [address] [place] [address] Phone: tel: fax: Referral ID Status Reason Start Date Expiration Date Visits Re quested Visits Authorized [id number] 01/16/2024 1 1 [facility] [employer] [facility] Summary Purpose Family History No Family History Records Found Relationship Condition Age at Onset Recorded Date/T shankar mother Asthma Unknown Glaucoma Unknown Hypertension Unknown father Diabetes mellitus Unknown sister Glaucoma Unknown Advance Directives No Advanced Directives Records Found Advance Directive Response Recorded Date/ Time Living Will No March 03 10:08pm Power of Occupational Health Rn No March 03, 2022 10:08pm Advance Directive Response Recorded Date/ Time Living Will No Yusuf 19th, 2 022 7:00am Power of Occupational Health Rn No March 04, 2022 7:00am Advance Directive Response Recorded Date/ Time Living Will No September 29, 2022 10:44pm Power of Occupational Health Rn No September 29 10:44pm Chief Complaint and Reason for Visit Chief Complaint BOWEL PERF Reason for Visit Small bowel perforat ion Chief Complaint PERFORATED SMALL INT ESTINE PERFORATED SMALL INTESTINE Reason for Visit Small bowel perforat ion Chief Complaint BURN Chief Complaint Admit Date BL HIPS June 28, 2024 9:3 7am RM 1 June 28, 2024 9:5 9am Pain August 10, 2024 11:04 am BL HIPS August 16, 2024 3:29p m Reason for Visit Admit Date Bilateral hip pain June 28, 2024 9:3 7am Reason for Visit Admit Date Bilateral hip pain June 28, 2024 9:3 7am Bilateral hip pain August 16, 2024 3:29p m Additional Source Comments INFORMATION SOURCE (unrecogn ized section and content) DATE CREATED AUTHOR 04/27/2018 [facility] DATE CREATED AUTHOR AUTHOR'S ORGANIZ ATION 10/29/2023 [facility] ([place]) DATE CREATED AUTHOR AUTHOR'S ORGANIZ ATION 12/22/2023 [facility] DATE CREATED AUTHOR AUTHOR'S ORGANIZ ATION 03/05/2024 [facility] DATE CREATED AUTHOR AUTHOR'S ORGANIZ ATION 08/18/2024 [facility] DATE CREATED AUTHOR AUTHOR'S ORGANIZ ATION 08/29/2024 [facility] DATE CREATED AUTHOR AUTHOR'S ORGANIZ ATION 09/03/2024 [facility] Care Team (unrecognized sect ion and content) Care Team Personnel Name: Zackary Pagerpurnima Trinidad PT Position: P3 Scheduling - Car Pick Up Driver Advanced Member Role: Other Name: Matt Renner Position: P3 Scheduling - Car Pick Up Driver Advanced Member Role: Other Name: RM CABRERA DO Position: P4 Physician - Primary Care Med Service: Active Provider Member Role: Primary Care Physician Address: Address: [address] [place] [address]- Care Team Related Persons Name: PAYTON SCOTT Address: Home [address] [place] [address] [address] [place], [place] [id number] Name: PROSPER TEE Goals (unrecognized section and content) Goals may be documented in a n alternate section Care Teams (unrecognized sec tion and content) Team Status: Active Member Role Status Dates Dr. Gabriela Traore MD Family Provider Active Dr. Latoya Troy , DO Primary Care Provider Activ e Team Status: Inactive Member Role Status Dates Dr. Latoya Troy , DO Primary Care Provider Activ e Dr. Blaine Sánchez , DO Emergency Provider Active Script Editor Relationship Specialty Start Date End Date Rm Cabrera DO [address] [place] [address] PCP - General Family Medicine 01/06/24 Sotero Wilkerson [address] [facility] [place], [place] [address] Referring Physician General Surgery 12/26/23 Script Editor Relationship Specialty Start Date End Date Rm Cabrera DO [address] [place] [id number] PCP - General Family Medicine 01/06/24 [facility]ero Wilkerson [address] [facility] [place], [place] [address] Referring Physician General Surgery 12/26/23 Script Editor Relationship Specialty Start Date End Date Rm Cabrera DO [address] [place] [id number] PCP - General Family Medicine 01/06/24 Sotero Wilkerson [address] [place] [address] Referring Physician General Surgery 12/26/23 Script Editor Relationship Specialty Start Date End Date Rm Cabrera DO [address] [place] [address] PCP - General Family Medicine 01/06/24 Sotero Wilkerson [address] [place] [address] Referring Physician General Surgery 12/26/23 Script Editor Relationship Specialty Start Date End Date Rm Cabrera DO [address] [place] [address] PCP - General Family Medicine 01/06/24 Sotero Wilkerson [address] [place] [address] Referring Physician General Surgery 12/26/23 Script Editor Relationship Specialty Start Date End Date Rm Cabrera DO [address] [place] [address] PCP - General Family Medicine 01/06/24 Sotero Wilkerson [address] [facility] [place] [place] [address] Referring Physician General Surgery 12/26/23 Team Status: Active Member Role Status Dates Dr. Rm Cabrera DO Primary Care Provider Active Team Status: Inactive Member Role Status Dates Dr. Rm Cabrera DO Primary Care Provider Active Start: June 28, 2024 End: June 28, 2024 Dr. Rm Cabrera DO Referring Provider Active St art: June 28, 2024 End: June 28, 2024 Dr. Giovanny Hernandez DO Attending Provider Active Start: June 28, 2024 End: June 28, 2024 Team Status: Inactive Member Role Status Dates Dr. Rm Cabrera DO Primary Care Provider Active Start: June 28, 2024 End: June 28, 2024 Dr. Suman Barrios MD Attending Provider Active S tart: June 28, 2024 End: June 28, 2024 Team Status: Active Member Role Status Dates Dr. Rm Cabrera DO Primary Care Provider Active Start: August 10, 2024 Dr. Giovanny Hernandez DO Attending Provider Active Start: August 10, 2024 Dr. Giovanny Hernandez DO Referring Provider Active Start: August 10, 2024 Team Status: Inactive Member Role Status Dates Dr. Rm Cabrera DO Primary Care Provider Active Start: August 16, 2024 End: August 16, 2024 Dr. Rm Cabrera DO Referring Provider Active St art: August 16, 2024 End: August 16, 2024 Dr. Giovanny Hernandez DO Attending Provider Active Start: August 16, 2024 End: August 16, 2024 Team Status: Inactive Member Role Status Dates Dr. mR Cabrera DO Primary Care Provider Active Start: August 10, 2024 End: August 10, 2024 Dr. Giovanny Hernandez DO Attending Provider Active Start: August 10, 2024 End: August 10, 2024 Dr. Giovanny Hernandez DO Referring Provider Active Start: August 10, 2024 End: August 10, 2024 Reason for Visit (unrecogniz ed section and content) Reason Comments New Patient Left side abdominal mass/Dr Sotero Wilkerson Reason Comments Post-op 02/09/24 excision of abdominal wall mass /Hibernoma Scheduled Active and Recently Administ ered Medications (unrecognized section and content) Medication Order 02/07/2024 02/08/2024 02/09/2024 acetaminophen (Tylenol) tablet 1,000 mg (COMPLETED) 1,000 mg, Oral, Once, On Fri02/09/24 at 0645, For 1 dose, Preprocedure, Administer 60 minutes prior to surgery. 0708 (Given - Provid er: Randal Cristobal RN) aprepitant (Emend) capsule 40 mg (COMPLETED) 40 mg, Oral, Once, On Fri02/09/24 at 0645, For 1 dose, Preprocedure 0707 (Given - Provid er: Randal Cristobal RN) ceFAZolin (Ancef) 2,000 mg in sodium chloride 0.9 % 100 mL IVPB (COMPLETED) 2,000 mg, IntraVENous, at 200 mL/hr, Administer over 30 Minutes, Once, On Fri02/09/24 at 0645, For 1 dose, Preprocedure, Administer within 1 hour prior to incision. Recommend to repeat in 3-4 hours after initial dose if still intra-op. Mini-Bag Plus bag, Suspected Indication (Select all that apply): Surgical Prophylaxis 0833 (New Bag - Prov ider: JOSE LUIS Coombs CRNA)0931 (Anesthesia Volume Adjustment - Provider: JOSE LUIS Coombs CRNA) famotidine (Pepcid) tablet 20 mg (COMPLETED)(Linked Group 1) 20 mg, Oral, Once, On Fri02/09/24 at 0645, For 1 dose, Preprocedure, IV or Oral - Use PO option as first line. If unable to tolerate PO, then okay to use IV. 0708 (Given - Provid er: Randal Cristobal RN) sodium chloride 0.9% (NS) flush 10 mL 10 mL, IntraVENous, Every 12 hours scheduled (2 times per day), First dose on Fri02/09/24 at 0900, Preprocedure 0900 (Canceled Entry - Provider: Automatic Discharge Provider - Comment: Automatically canceled at discontinue of medication order) sodium chloride 0.9% (NS) flush 5-40 mL 5-40 mL, IntraVENous, Every 12 hours, First dose on Fri02/09/24 at 0645, Preprocedure, For Line Patency: Peripheral IV = 5 mL; Midline or Central Line = 10 mL/lumen. If following IV push medication, administer flush at same rate as the IV push. Flush volume is determined by type of infusion therapy being given. For non-viscous solutions use: Peripheral IV = 5 mL Midline or Central Line = 10 mL/lumen For viscous solutions (i.e. blood components, parenteral nutrition, contrast media, or after obtaining blood sample) use: Peripheral IV = 10 mL Midline or Central Line = 20 mL/lumen 0645 (Canceled Entry - Provider: Automatic Discharge Provider - Comment: Automatically canceled at discontinue of medication order) Continuous Medication Order 02/07/2024 02/08/2024 02/09/2024 lactated Ringer's (LR) infusion 50 mL/hr, IntraVENous, Continuous, Starting on Fri02/09/24 at 0645, Preprocedure, Upon admission to sameday - please start iv if patient does not have iv access. Use 500ml NS for patients on dialysis. 07 (New Bag - Prov ider: Randal Cristobal RN)823 (Paused - Provider: JOSE LUIS Coombs CRNA - Comment: Switch to gravity)824 (Restarted - Provider: JOSE LUIS Coombs CRNA)917 (Stopped - Provider: JOSE LUIS Coombs CRNA) PRN Medication Order 02/07/2024 02/08/2024 02/09/2024 diphenhydrAMINE (BENADryl) injection 12.5 mg 12.5 mg, IntraVENous, Once PRN, itching, Starting on Fri02/09/24 at 0956, For 1 dose, Recovery (only) hydrALAZINE (Apresoline) injection 5 mg(Linked Group 2) 5 mg, IntraVENous, Every 15 min PRN, high blood pressure, for SBP greater than 160 mmHg for 2 consecutive measurements taken from different sites, Starting on Fri02/09/24 at 0956, For 2 doses, Recovery (only), PRN for SBP > 160 for 2 consecutive measurements, and if one of the following conditions is met: 1) If IV labetolol is ineffective. 2) If HR is under 60. 3) If patient has heart block, COPD or asthma. If both labetalol and hydralazine ineffective, notify anesthesia provider. HYDROmorphone (Dilaudid) injection 0.25 mg 0.25 mg, IntraVENous, Every 5 min PRN, moderate pain (4-6), Starting on Fri02/09/24 at 0956, For 4 doses, Recovery (only), For Phase I. If Phase II oral narcotics have been administered in the last 60 minutes, do not administer IV narcotics unless specifically approved by provider. 1018 (Given - Provid er: Gibson Douglas RN)1034 (Given - Provider: Gibson Douglas RN) HYDROmorphone (Dilaudid) injection 0.5 mg 0.5 mg, IntraVENous, Every 5 min PRN, severe pain (7-10), Starting on Fri02/09/24 at 0956, For 4 doses, Recovery (only), For Phase I. If Phase II oral narcotics have been administered in the last 60 minutes, do not administer IV narcotics unless specifically approved by provider. 0958 (Given - Provid er: Gibson Douglas RN)1008 (Given - Provider: Gibson Douglas RN) labetalol (Normodyne,Trandate) injection 5 mg(Linked Group 2) 5 mg, IntraVENous, Every 10 min PRN, high blood pressure, for SBP greater than 160 mmHg for 2 consecutive measurements taken from different sites., Starting on Fri02/09/24 at 0956, For 2 doses, Recovery (only), PRN for SBP >160 for 2 consecutive measurements, if HR is 60 or greater. If beta vickey is contraindicated (HR less than 60, heart block, COPD or asthma) use hydralazine IV order. lidocaine-EPINEPHrine (Xylocaine W/EPI) 1 %-[id number] injection (CANCELED) As needed, Starting on Fri02/09/24 at 0907, Intraprocedure 0907 (Given - Provid er: Andre Allison MD - Comment: left abdomen) LORazepam (Ativan) injection 0.5 mg 0.5 mg, IntraVENous, Once PRN, for anxiety or muscle spasm., Starting on Fri02/09/24 at 0956, For 1 dose, Recovery (only), For IV doses dilute dose with 1ml NS. meperidine (Demerol) injection 12.5 mg 12.5 mg, IntraVENous, Every 5 min PRN, shivering, Starting on Fri02/09/24 at 0956, For 2 doses, Recovery (only), May give every 5 minutes to max of 25mg. Notify Anesthesia Provider before administration. ondansetron (Zofran) injection 4 mg 4 mg, IntraVENous, Once PRN, nausea, Starting on Fri02/09/24 at 0956, For 1 dose, Recovery (only), Initial antiemetic therapy. oxyCODONE (Roxicodone) immediate release tablet 10 mg(Linked Group 3) 10 mg, Oral, Every 4 hours PRN, severe pain (7-10), Starting on Fri02/09/24 at 0956, For 1 dose, Recovery (only), PHASE II oxyCODONE (Roxicodone) immediate release tablet 5 mg(Linked Group 3) 5 mg, Oral, Every 4 hours PRN, moderate pain (4-6), Starting on Fri02/09/24 at 0956, For 1 dose, Recovery (only), PHASE II sodium chloride 0.9 % bolus 500 mL 500 mL, IntraVENous, at 1,000 mL/hr, Administer over 0.5 Hours, PRN, Anti-nausea, Starting on Fri02/09/24 at 0956, Recovery (only), Indications: Anti-nausea sodium chloride 0.9 % infusion 5-250 mL/hr, IntraVENous, PRN, if patient receiving piggyback infusions and maintenance fluids are not ordered OR KVO fluids to protect IV site / prevent frequent line interruptions / long duration, Starting on Fri02/09/24 at 0640, Preprocedure, For piggyback infusion, administer at same rate as piggyback for a total of 25 mL. Enter 25 mL into dose field and piggyback rate into rate field of order. If piggyback is infusing at a rate less than 100 mL/hr, enter 25 mL into dose field and 100 mL/hr into rate field of order. For KVO fluids, enter rate of 20 mL/hr or less into rate field of order. sodium chloride 0.9 % infusion 5-250 mL/hr, IntraVENous, PRN, if patient receiving piggyback infusions and maintenance fluids are not ordered OR KVO fluids to protect IV site / prevent frequent line interruptions/ long duration, Starting on Fri02/09/24 at 0640, Preprocedure, For piggyback infusion, administer at same rate as piggyback for a total of 25 mL. Enter 25 mL into dose field and piggyback rate into rate field of order. If piggyback is infusing at a rate less than 100 mL/hr, enter 25 mL into dose field and 100 mL/hr into rate field of order. For KVO fluids, enter rate of 20 mL/hr or less into rate field of order. sodium chloride 0.9 % irrigation solution (CANCELED) As needed, Starting on Fri02/09/24 at 0848, Intraprocedure 0848 (Given - Provid er: Breana Mathis MD) sodium chloride 0.9% (NS) flush 10 mL 10 mL, IntraVENous, PRN, line care, Starting on Fri02/09/24 at 0640, Preprocedure, After every IV line use sodium chloride 0.9% (NS) flush 5-40 mL 5-40 mL, IntraVENous, PRN, line care, After every IV line use, Starting on Fri02/09/24 at 0640, Preprocedure, For Line Patency: Peripheral IV = 5 mL; Midline or Central Line = 10 mL/lumen. If following IV push medication, administer flush at same rate as the IV push. Flush volume is determined by type of infusion therapy being given. For non-viscous solutions use: Peripheral IV = 5 mL Midline or Central Line = 10 mL/lumen For viscous solutions (i.e. blood components, parenteral nutrition, contrast media, or after obtaining blood sample) use: Peripheral IV = 10 mL Midline or Central Line = 20 mL/lumen Linked Groups Order Group 1: famotidine (Pepcid) tablet 20 mg (COMPLETED)Jump to med 20 mg, Oral, Once, On Fri02/09/24 at 0645, For 1 dose, Preprocedure, IV or Oral - Use PO option as first line. If unable to tolerate PO, then okay to use IV. Or famotidine (Pepcid) 20 mg in sodium chloride (PF) 0.9 % 10 mL injection (COMPLETED) 20 mg, IntraVENous, Administer over 2 Minutes, Once, On Fri02/09/24 at 0645, For 1 dose, Preprocedure, IV or Oral Group 2: labetalol (Normodyne,Trandate) injection 5 mgJump to med 5 mg, IntraVENous, Every 10 min PRN, high blood pressure, for SBP greater than 160 mmHg for 2 consecutive measurements taken from different sites., Starting on Fri02/09/24 at 0956, For 2 doses, Recovery (only), PRN for SBP >160 for 2 consecutive measurements, if HR is 60 or greater. If beta vickey is contraindicated (HR less than 60, heart block, COPD or asthma) use hydralazine IV order. Or hydrALAZINE (Apresoline) injection 5 mgJump to med 5 mg, IntraVENous, Every 15 min PRN, high blood pressure, for SBP greater than 160 mmHg for 2 consecutive measurements taken from different sites, Starting on Fri02/09/24 at 0956, For 2 doses, Recovery (only), PRN for SBP > 160 for 2 consecutive measurements, and if one of the following conditions is met: 1) If IV labetolol is ineffective. 2) If HR is under 60. 3) If patient has heart block, COPD or asthma. If both labetalol and hydralazine ineffective, notify anesthesia provider. Group 3: oxyCODONE (Roxicodone) immediate release tablet 5 mgJump to med 5 mg, Oral, Every 4 hours PRN, moderate pain (4-6), Starting on Fri02/09/24 at 0956, For 1 dose, Recovery (only), PHASE II Or oxyCODONE (Roxicodone) immediate release tablet 10 mgJump to med 10 mg, Oral, Every 4 hours PRN, severe pain (7-10), Starting on Fri02/09/24 at 0956, For 1 dose, Recovery (only), PHASE II FOR RECORDS PERTAINING TO PATIENTS WHO ARE OR HAVE BEEN ENROLLED IN A CHEMICAL DEPENDENCY/SUBSTANCEABUSE PROGRAM, SOME INFORMATION MAY BE OMITTED. This clinical summary was aggregated from multiple sources. Caution should be exercised in using it in the provision of clinical care. This summary normalizes information from multiple sources, and as a consequence, information in this document may materially change the coding, format and clinical context of patient data. In addition, data may be omitted in some cases. CLINICAL DECISIONS SHOULD BE BASED ON THE PRIMARY CLINICAL RECORDS. [employer] [facility]. provides no warranty or guarantee of the accuracy or completeness of information in this document.
[2024-09-05 10:50] LABS: Bacteria 0 SEEN /hpf (None Seen); Mucous, Urine 0 SEEN /hpf (<or=2+); Red Blood Cells-Urine 0 SEEN /hpf (0-5); Squamous Epithelial Cells - UA 0 SEEN /hpf (5-10); White Blood Cells 0 SEEN /hpf (0-5)
[2024-09-05 10:52] LABS: Color, Urine Straw (Yellow); Glucose, Dipstick Normal (Normal); Ketone-Dipstick 5 mg/dl (Negative); Leukocyte Esterase-Dipstick Negative /ul (Negative); Nitrite-Dipstick Negative (Negative); Occult Blood-Urine Negative /ul (Negative); Protein-Dipstick Negative (Negative); Urine Bilirubin Dipstick Negative (Negative); Urine Clarity Clear (Clear); Urine Urobilinogen Normal (Normal); Urine pH 6.5 (5.0 - 8.0)
[2024-09-05 10:57] LABS: Internal QC Validated? YES +Cl - CLEAR BKGD; Pregnancy, Urine Negative Negative
[2024-09-05 10:59] LABS: AST(SGOT) 18 U/L (<=31); Alanine Aminotransfer ALT/SGPT 13 U/L (<=34); Albumin, Serum 4.1 g/dL (3.5-5.0); Alkaline Phosphatase 109 U/L (35-104); Anion Gap 12 (5-15); BUN 13 mg/dL (4-19); BUN/Creat Ratio 16.1 RATIO (10-20); Bilirubin, Direct 0.36 mg/dL (0.00-0.30); Calcium,Total 9.5 mg/dL (7.6-11.0); Chloride 105 mmol/L (98-108); Creatinine, Serum 0.83 mg/dL (0.70-1.20); EST Glomerular Filtration Rate 92 (>60); Estimated Creatinine Clearance 82.19 ml/min (50-250); Globulin 3.4 g/dL (2.2-4.2); Glucose 95 mg/dL (70-99); Lipase 18 U/L (13-75); Potassium 3.9 mmol/L (3.3-5.1); Protein, Total 7.5 g/dL (5.9-8.4); Sodium Level 139 mmol/L (133-145); Total Bilirubin 0.84 mg/dL (0.00-1.30)
[2024-09-05 11:53] VITALS: BP 120/71; PULSE 80; RESP 18; O2SAT 98
[2024-09-05 13:00] VITALS: BP 108/78; PULSE 78; RESP 16; O2SAT 98
[2024-09-05 13:13] VITALS: BP 108/78; PULSE 78; RESP 16; TEMP 37; O2SAT 98
== END 2024-09-05 13:35 | disposition home or self-care (01) ==
PROVIDERS: Emergency Provider Emergency Medicine; PCP Student in an Organized Health Care Education/Training Program; Visit Provider Emergency Medicine
DX: R10.11 Right upper quadrant pain (principal); R11.0 Nausea; Z90.89 Acquired absence of other organs; Z87.891 Personal history of nicotine dependence; Z90.49 Acquired absence of other specified parts of digestive tract
CPT/HCPCS: 96361; 96374; 96375; 76705; 80048; 80076; 81001; 81025; 83690; 85025; 99282; A4216; J2405